=== PATIENT | male | born 1970 | race Caucasian/White ===

== ENCOUNTER → 2021-06-06 | Outpatient (CLI) | payer MEDICARE, MEDICAID ==
[2021-04-15 15:00] VITALS: BP 146/71
[~2021-06-06] MED LIST: AMLO-187 PO; AMOX1TAB11 PO; AMOX1TAB61 PO; ARIP5TAB13 PO; ATOR20TA58 PO; BUDE10.2 IH; CHOL5000 PO; DIAZ5TAB4 PO; FLUT1BLS3 IH; LEVE10007 PO; NABU750T11 PO; OXYC30TA64 PO; OXYC80TA16 PO; POTA-121 PO; PRED-220 PO; QUET50TA5 PO; SERT100T PO; TRAZ-123 PO; VANC125C3 PO; VENTOLIN HFA18 GM INH
== END ==
LOC: LAB 11:34
PROVIDERS: ATTEND Podiatrist
DX: Z01.812 Encounter for preprocedural laboratory examination (principal); Z20.822 Contact with and (suspected) exposure to COVID-19
CPT/HCPCS: U0003; U0005

== ENCOUNTER 2021-06-08 11:16 | Inpatient (IN) | payer MEDICARE, MEDICAID ==
[~2021-06-08] VITALS: Ht 170.2 cm; Wt 73.6 kg
[~2021-06-08 11:16] MED LIST changes: -BUDE10.2 IH; -DIAZ5TAB4 PO; -FLUT1BLS3 IH; +HYDROmorphone 2 MG/ML INJ. IVP PRN; +IV RINGERS,LACTATED 1000ML 1,000 ML IV SCH; +MORPHINE SULFATE 2 MG/ML INJ. IVP PRN; +PROCHLORPERAZINE 10 MG/2 ML VIAL. IVP PRN; -QUET50TA5 PO; -VENTOLIN HFA18 GM INH; +fentaNYL PF VIAL 100 MCG/2 ML VIAL IVP PRN
--- NOTE | 2021-06-08 12:08 | PDOC1 ---
History and Physical Date of Service: DOS: DATE: 06/08/21 TIME: 11:58 Chief Complaint: Chief Complain: foot surgery History of Present Illness: HPI: Patient is a 50yo WM presenting today for right foot surgery with Dr. Shaw. Previous right first metatarsal fracture. Hx COPD on 3l home o2, HTN, previous seizure d/o. Patient noted to be saturating 84% on his usual 3L O2 nasal cannula. He was denying any respiratory symptoms at this time. Took morning meds today as directed. Past Medical/Surgical History: PMH/PSH: COPD, HTN, Seizure d/o Allergies: Allergies: Coded Allergies: No Known Drug Allergies (Unverified , 06/08/21) Family History: Family History: none known Social History: Social History: Daily tobacco use. Denies alcohol drugs Current Medications: Current Medications Current Medications Fentanyl Citrate (Fentanyl 2ml Vial) 25 mcg PRN Q5MIN PRN IVP MILD PAIN 1-3; Start 06/08/21 at 06:00; Stop 06/09/21 at 05:59 Fentanyl Citrate (Fentanyl 2ml Vial) 50 mcg PRN Q5MIN PRN IVP MODERATE PAIN 4- 6; Start 06/08/21 at 06:00; Stop 06/09/21 at 05:59 Morphine Sulfate (Morphine Sulfate) 1 mg PRN Q10MIN PRN IVP SEVERE PAIN 7-10; Start 06/08/21 at 06:00; Stop 06/09/21 at 05:59 Ringer's Solution 1,000 ml @ 30 mls/hr Q24H IV ; Start 06/08/21 at 06:00; Stop 06/08/21 at 17:59 Hydromorphone HCl (Dilaudid) 0.5 mg PRN Q10MIN PRN IVP SEVERE PAIN 7-10, 2nd CHOICE; Start 06/08/21 at 06:00; Stop 06/09/21 at 05:59 Prochlorperazine Edisylate (Compazine) 5 mg PACU PRN PRN IVP NAUSEA, MRX1; Start 06/08/21 at 06:00; Stop 06/09/21 at 05:59 Cefazolin Sodium/ Dextrose 50 ml @ 100 mls/hr 1X PREOP PRN IV PRIOR TO PROCEDURE; Start 06/08/21 at 06:00; Stop 06/08/21 at 18:00 Active Scripts Active Prednisone (Prednisone) 10 Mg Tablet 10 Mg PO UD Take 4 tablets by mouth daily for 2 days, then take 3 tablets by mouth daily for 2 days, then take 2 tablets by mouth daily for 2 days, then take 1 tablets by mouth daily for 2 days, then stop. Augmentin 875-125 Tablet (Amoxicillin/Potassium Clav) 1 Each Tablet 1 Tab PO BID 7 Days Vitamin D3 (Vitamin D) 125 Mcg Capsule 5,000 Unit PO DAILY Amlodipine Besylate 10 Mg Tablet 10 Mg PO DAILY 30 Days Reported Levetiracetam 1,000 Mg Tablet 1,000 Mg PO BID Take twice a day for 6 months (breakfast/bedtime) Month 7 - take once a day at bedtime Month 8 - take every other night Month 9 - stop taking Klor-Con M20 (Potassium Chloride) 20 Meq Tab.er.prt 20 Meq PO DAILY Trazodone Hcl 100 Mg Tablet 100 Mg PO HS Oxycontin (Oxycodone HCl) 30 Mg Tab.er.12h 30 Mg PO PRN Q4HRS PRN Nabumetone 750 Mg Tablet 750 Mg PO PRN BID PRN Zoloft (Sertraline Hcl) 100 Mg Tablet 100 Mg PO DAILY Abilify (Aripiprazole) 5 Mg Tablet 5 Mg PO DAILY Oxycontin (Oxycodone HCl) 80 Mg Tab.er.12h 80 Mg PO BID Atorvastatin Calcium 20 Mg Tablet 20 Mg PO HS ROS: Review of Systems Review of System Unless noted in HPI a 14pt ROS was negative Physical Exam: Vital Signs: Vital Signs Date Time Temp Pulse Resp B/P (MAP) Pulse Ox O2 Delivery O2 Flow Rate FiO2 06/08/21 11:49 98.8 105 24 135/60 85 Nasal Cannula 3 98.8 Physcial Exam: GEN: No apparent distress. Alert and oriented HEENT: Normal cephalic, atraumatic, external auditory canals are patent EYES: Extraocular muscles are intact, pupil are equally round and reactive to light and accommodation MUSCULOSKELETAL: Well developed , well nourished, good range of motion ENDOCRINE: No thyromegaly was palpated LYMPHATICS: No cervical chain or axillary nodes were noted HEMATOPOIETIC: No bruising NECK: Supple, no JVD, no thyromegaly was noted LUNGS: Clear to auscultation in all lung tee without rhonchi or wheezing HEART: RRR, S!, S2 present. Peripheral pulses intact, no obvious murmurs noted ABDOMEN: Soft, nontender. Positive bowel sounds, no organomegaly, normal bowel sounds EXTREMITIES: Without clubbing, cyanosis, or edema. Pedal pulses intact. Negative Homans sign NEUROLOGIC: Normal speech and tone. A&O x 3, moves all extremities, no obvious focal deficits PSYCHIATRIC: Normal affect, normal mood. Stable SKIN: No ulcerations or rashes, good skin turgor, no jaundice VASCULAR: Good capillary refill, neurovascular bundle appears to be intact Assessment/Plan Assessment/Plan Patient here for right lower extremity surgery. Saturation noted to be low 80's when seen at bedside. Will try a duoneb to see if this helps patient's saturations. If no improvement check chest Xray. If saturations improve ok for surgery from hospitalist standpoint. Justifications for Admission Other Justification SILVIA CROWLEY MD Jun 08, 2021 12:08
[2021-06-08] MEDS ORDERED: IPRATRPIUM/ALBUTEROL 0.5/2.5MG 3 ML NEBU. NEB ONE (12:15)
[2021-06-08 12:18] LABS: CALCIUM 8.8 mg/dL (8.5-10.1); CREATININE 0.9 mg/dL (0.7-1.3); GFR 88.6; POTASSIUM 3.9 mmol/L (3.5-5.1)
--- NOTE | 2021-06-08 12:38 | RAD ---
EXAM: Chest, single view. HISTORY: Preoperative evaluation. COMPARISON: 04/11/2021 FINDINGS: A frontal view of the chest is obtained. There is left lower lobe atelectasis or interstiti al infiltrate. There is no pleural effusion or pneumothorax. The heart is normal in size. There is ce rvical spinal fusion instrumentation. IMPRESSION: Left lower lobe opacity, increased compared to the prior study and likely due to atelecta sis or infiltrate. Electronically signed by: Ashley Moreno MD (06/08/2021 12:35 PM) [id number]
[2021-06-08 12:46] LABS: BASE EXCESS ABG 11 mmol/L (-3-3); HCO3 ABG 42 mmol/L (21-28); SAT O2 ABG 85 % (92-99)
[2021-06-08 12:53] LABS: FIO2 ABG 3L NC; PCO2 ABG 84 mmHg (35-46); PO2 ABG 44 mmHg (75-108)
[2021-06-08] MEDS ORDERED: QUET50TA5 PO (13:40)
[2021-06-08] MEDS ORDERED: DIAZ5TAB4 PO (13:40)
[2021-06-08] MEDS ORDERED: BUDE10.2 IH (13:43)
[2021-06-08] MEDS ORDERED: VENTOLIN HFA18 GM INH (13:43)
[2021-06-08] MEDS ORDERED: FLUT1BLS3 IH (13:43)
[2021-06-08] MEDS ORDERED: ZOLPIDEM 5 MG TABLET. PO PRN (14:00)
[2021-06-08] MEDS ORDERED: cefTRIAXone IV Push 1 GM VIAL. IVP SCH (14:00)
[2021-06-08] MEDS ORDERED: ACETAMINOPHEN 325 MG TABLET. PO PRN (14:00)
[2021-06-08] MEDS ORDERED: DEXTROSE 50% 25 GM / 50ML DISP.SYRIN. IV PRN (14:00)
[2021-06-08] MEDS ORDERED: ONDANSETRON PF 4 MG/2 ML VIAL. IVP PRN (14:00)
[2021-06-08] MEDS ORDERED: diphenhydrAMINE 50 MG/ML VIAL IVP PRN (14:00)
[2021-06-08] MEDS ORDERED: diazePAM 5 MG TABLET PO ONE (14:00)
[2021-06-08] MEDS ORDERED: diphenhydrAMINE HCL 25 MG CAPSULE PO PRN (14:00)
[2021-06-08] MEDS ORDERED: PROCHLORPERAZINE 10 MG/2 ML VIAL. IV PRN (14:00)
[2021-06-08] MEDS: cefTRIAXone IV Push 1 GM VIAL. IVP SCH (14:11)
[2021-06-08] MEDS ORDERED: OXYC30TA64 PO (14:20)
[2021-06-08 15:30] VITALS: BP 115/66
[2021-06-08] MEDS: IPRATRPIUM/ALBUTEROL 0.5/2.5MG 3 ML NEBU. NEB SCH ×2 (15:32→20:00)
[2021-06-08] MEDS: ALBUTEROL SULFATE 2.5 MG/3 ML NEBU. NEB SCH ×2 (16:00→20:00)
[2021-06-08] MEDS: AZITHROMYCIN 500 MG in IV NORMAL SALINE 250ML 250 ML IV SCH (16:00)
[2021-06-08 19:00] VITALS: BP 130/74
[2021-06-08] MEDS: BUDESONIDE 0.5 MG/2 ML NEBU. NEB SCH (20:00)
[2021-06-08] MEDS: oxyCODONE ER 40 MG TAB.ER.12H PO SCH (20:26)
[2021-06-08] MEDS: ATORVASTATIN CALCIUM 20 MG TABLET PO SCH (20:26)
[2021-06-08] MEDS: diazePAM 5 MG TABLET PO SCH (20:26)
[2021-06-08] MEDS: traZODone 100 MG TABLET. PO SCH (20:27)
[2021-06-08] MEDS: QUEtiapine 25 MG TABLET. PO SCH (20:27)
[2021-06-08 20:38] LABS: BASE EXCESS ABG 6 mmol/L (-3-3); HCO3 ABG 35 mmol/L (21-28); PO2 ABG 54 mmHg (75-108); SAT O2 ABG 89 % (92-99)
[2021-06-08 20:49] LABS: PCO2 ABG 71 mmHg (35-46)
[2021-06-08 23:00] VITALS: BP 133/65
[2021-06-09 03:12] VITALS: BP 130/79
[2021-06-09] MEDS: LORazepam 0.5 MG TABLET PO PRN (03:21)
[2021-06-09] MEDS: ALBUTEROL SULFATE 2.5 MG/3 ML NEBU. NEB SCH ×6 (04:00→20:00)
[2021-06-09] MEDS: IPRATRPIUM/ALBUTEROL 0.5/2.5MG 3 ML NEBU. NEB SCH ×4 (06:36→20:14)
[2021-06-09] MEDS: BUDESONIDE 0.5 MG/2 ML NEBU. NEB SCH ×2 (06:41→20:14)
[2021-06-09 07:00] VITALS: BP 118/66
[2021-06-09] MEDS: diazePAM 5 MG TABLET PO SCH ×3 (08:01→20:42)
[2021-06-09] MEDS: oxyCODONE ER 40 MG TAB.ER.12H PO SCH ×2 (08:01→20:43)
[2021-06-09] MEDS: SERTRALINE 50 MG TABLET. PO SCH (08:01)
[2021-06-09] MEDS ORDERED: NON FORMULARY ITEM (Fluticasone/Umeclidin/Vilanter (Trelegy Ellipta 100-62.5-25) 1 EACH) IH SCH (09:00)
[2021-06-09 11:00] VITALS: BP 111/64
--- NOTE | 2021-06-09 11:59 | NUR ---
SW following. Discussed with RN, pt from home, on continuous bipap. Pt came for an outpatient surgery, however oxygen needs were too great to proceed with surgery. Last admission pt discharged to [facility] whilst he awaited the surgery. Pt being tested for COVID-19. SW will continue to follow.
[2021-06-09] MEDS ORDERED: NICOTINE 14MG PATCH. TD SCH (13:00)
--- NOTE | 2021-06-09 13:10 | PDOC ---
PULMONARY PROGRESS NOTES DATE: 06/09/21 TIME: 13:09 Vitals Vital Signs Date Time Temp Pulse Resp B/P (MAP) Pulse Ox O2 Delivery O2 Flow Rate FiO2 06/09/21 12:20 BiPAP/CPAP 06/09/21 11:37 99 06/09/21 11:00 98.5 78 20 111/64 (80) 98.5 06/08/21 23:00 10.0 General: Alert HEENT: Other Lungs: Clear Cardiovascular: S1, S2 Abdomen: Soft, Non-tender Extremities: No Edema Labs Laboratory Tests Test 06/08/21 11:50 06/08/21 12:45 06/08/21 20:35 Sodium Level 141 mmol/L (136-145) Potassium Level 3.9 mmol/L (3.5-5.1) Chloride Level 99 mmol/L (98-107) Carbon Dioxide Level 37 mmol/L (21-32) Anion Gap 5 (6-14) Blood Urea Nitrogen 9 mg/dL (8-26) Creatinine 0.9 mg/dL (0.7-1.3) Estimated GFR (Cockcroft-Gault) 88.6 Glucose Level 106 mg/dL (70-99) Calcium Level 8.8 mg/dL (8.5-10.1) O2 Saturation 85 % (92-99) 89 % (92-99) Arterial Blood pH 7.31 (7.35-7.45) 7.32 (7.35-7.45) Arterial Blood pCO2 at Patient Temp 84 mmHg (35-46) 71 mmHg (35-46) Arterial Blood pO2 at Patient Temp 44 mmHg (75-108) 54 mmHg (75-108) Arterial Blood HCO3 42 mmol/L (21-28) 35 mmol/L (21-28) Arterial Blood Base Excess 11 mmol/L (-3-3) 6 mmol/L (-3-3) FiO2 3l nc Laboratory Tests Test 06/08/21 20:35 O2 Saturation 89 % (92-99) Arterial Blood pH 7.32 (7.35-7.45) Arterial Blood pCO2 at Patient Temp 71 mmHg (35-46) Arterial Blood pO2 at Patient Temp 54 mmHg (75-108) Arterial Blood HCO3 35 mmol/L (21-28) Arterial Blood Base Excess 6 mmol/L (-3-3) Medications Active Scripts Medications Dose Route/Sig Max Daily Dose Days Date Category Oxycontin (Oxycodone HCl) 30 Mg Tab.er.12h 1-2 Tab PO Q4HRS MDD 3 Tablet(s) 30 06/08/21 Reported Trelegy Ellipta 100-62.5-25 (Fluticasone/Umeclidin/Vilanter) 1 Each Blst.w.dev 1 Each IH DAILY 06/08/21 Reported Ventolin Hfa Inhaler (Albuterol Sulfate) 18 Gm Hfa.aer.ad 2 Puff INH Q4HRS 06/08/21 Reported Symbicort 160-4.5 Mcg Inhaler (Budesonide/Formoterol Fumarate) 10.2 Gm Hfa.aer.ad 2 Puff IH BID 06/08/21 Reported Seroquel (Quetiapine Fumarate) 50 Mg Tablet 50 Mg PO HS 06/08/21 Reported Diazepam 5 Mg Tablet 5 Mg PO TID 06/08/21 Reported Trazodone Hcl 100 Mg Tablet 100 Mg PO HS 04/06/20 Reported Zoloft (Sertraline Hcl) 100 Mg Tablet 100 Mg PO DAILY 04/06/20 Reported Oxycontin (Oxycodone HCl) 80 Mg Tab.er.12h 80 Mg PO BID 04/06/20 Reported Atorvastatin Calcium 20 Mg Tablet 20 Mg PO HS 04/06/20 Reported Amlodipine Besylate 10 Mg Tablet 10 Mg PO DAILY 30 04/05/20 Rx Impression . FULL CONSULT DICTATED SEE ORDERS HOLD OFF ON SURGERY FOR NOW AVOIOD EXCESSIVE SEDATING RX CONTINUE PRN BIPAP THANKS MIRIAM WAGNER MD Jun 09, 2021 13:10
--- NOTE | 2021-06-09 13:21 | PDOC ---
[employer] PROGRESS NOTE Date of Service DOS: DATE: 06/09/21 TIME: 13:05 Chief Complaint Chief Complaint Acute hypoxic and hypercapnic respiratory failure requiring BiPAP support Second and third metatarsal fractures pending orthopedic surgery Continue empiric IV antibiotics Continue BiPAP support Pulmonology consult Treverx for DVT prophylaxis Cardiac diet CODE STATUS full Discussed with RN and SW Disposition inpatient management as above DPOA: Son History of Present Illness History of Present Illness 50yo WM presenting today for right foot surgery with Dr. Shaw. Previous right first metatarsal fracture. Hx COPD on 3l home o2, HTN, previous seizure d/o. Patient noted to be saturating 84% on his usual 3L O2 nasal cannula. He was denying any respiratory symptoms at this time. Took morning meds today as directed. Patient's oxygen saturations did not improve with DuoNeb treatment. Seen by anesthesiologist chest x-ray and ABG ordered. Chest x-ray showing left infiltrate. Will start antibiotics. ABG showed consistent with pretty significant respiratory acidosis. May benefit from BiPAP treatment. Will definitely need admission at this point. Surgery canceled. 06/09/2021 No acute events overnight. Patient seen examined bedside. Afebrile and vital signs stable. Saturating 99% on 100% BiPAP. BiPAP taken off and seen on nasal cannula and patient desaturated to the 80s on 5 L nasal cannula. Not dyspneic upon my exam. Patient wishes to remains to be full code. Pending Covid PCR. Patient's chart, labs, images were reviewed and discussed with RN Vitals/I&O Vitals/I&O: Vital Signs Date Time Temp Pulse Resp B/P (MAP) Pulse Ox O2 Delivery O2 Flow Rate FiO2 06/09/21 12:20 BiPAP/CPAP 06/09/21 11:37 99 06/09/21 11:00 98.5 78 20 111/64 (80) 98.5 06/08/21 23:00 10.0 I & O 06/08/21 06/08/21 06/09/21 15:00 23:00 07:00 Intake Total 0 ml 220 ml Balance 0 ml 220 ml Physical Exam General: Alert, Oriented X3, Cooperative Heart: Regular rate Lungs: Clear Abdomen: Normal bowel sounds Extremities: No clubbing Labs Labs: Laboratory Tests Test 06/08/21 20:35 O2 Saturation 89 % (92-99) Arterial Blood pH 7.32 (7.35-7.45) Arterial Blood pCO2 at Patient Temp 71 mmHg (35-46) Arterial Blood pO2 at Patient Temp 54 mmHg (75-108) Arterial Blood HCO3 35 mmol/L (21-28) Arterial Blood Base Excess 6 mmol/L (-3-3) Comment Review of Relevant I have reviewed the following items daria (where applicable) has been applied. Medications: Current Medications Medications (Trade) Dose Ordered Sig/Jakob Route PRN Reason Start Time Stop Time Status Last Admin Dose Admin Ceftriaxone Sodium (Rocephin) 1 gm Q24H IVP 06/08/21 15:00 06/08/21 14:11 Diazepam (Valium) 5 mg 1X ONCE PO 06/08/21 14:00 06/08/21 14:01 DC 06/08/21 14:02 Oxycodone HCl (Roxicodone) 30 mg 1X ONCE PO 06/08/21 14:00 06/08/21 14:01 DC 06/08/21 14:02 Albuterol/ Ipratropium (Duoneb) 3 ml RTQID NEB 06/08/21 16:00 06/09/21 11:35 Lorazepam (Ativan) 0.5 mg PRN Q6HRS PRN PO ANXIETY / AGITATION 06/08/21 14:00 06/09/21 03:21 Azithromycin 500 mg/Sodium Chloride 250 ml @ 250 mls/hr Q24H IV 06/08/21 16:00 06/08/21 16:00 Amlodipine Besylate (Norvasc) 10 mg DAILY PO 06/09/21 09:00 06/09/21 08:01 Atorvastatin Calcium (Lipitor) 20 mg QHS PO 06/08/21 21:00 06/08/21 20:26 Diazepam (Valium) 5 mg TID PO 06/08/21 21:00 06/09/21 08:01 Trazodone HCl (Desyrel) 100 mg QHS PO 06/08/21 21:00 06/08/21 20:27 Budesonide (Pulmicort) 0.5 mg RTBID NEB 06/08/21 20:00 06/09/21 06:41 Oxycodone HCl (Roxicodone) 30 mg PRN Q4HRS PRN PO BREAKTHRU PAIN 06/08/21 15:15 06/09/21 03:22 Oxycodone HCl (OxyCONTIN) 80 mg BID PO 06/08/21 21:00 06/09/21 08:01 Quetiapine Fumarate (SEROquel) 50 mg QHS PO 06/08/21 21:00 06/08/21 20:27 Sertraline HCl (Zoloft) 100 mg DAILY PO 06/09/21 09:00 06/09/21 08:01 Justifications for Admission Other Justification Hypercapnic respiratory failure SREEDHAR VASQUEZ MD Jun 09, 2021 13:21
[2021-06-09 13:28] LABS: BASO % 1 % (0-3); EOS # 0.3 x10^3/uL (0.0-0.7); EOS % 5 % (0-3); HEMATOCRIT 50.1 % (39.0-53.0); HEMOGLOBIN 15.5 g/dL (13.0-17.5); LYMPH # 2.2 x10^3/uL (1.0-4.8); LYMPH % 34 % (24-48); MEAN CORPUSCULAR HEMOGLOBIN 33 pg (25-35); MEAN CORPUSCULAR HGB CONC 31 g/dL (31-37); MEAN CORPUSCULAR VOLUME 108 fL (79-100); MONO # 0.5 x10^3/uL (0.0-1.1); MONO % 8 % (0-9); NEUT # 3.4 x10^3/uL (1.8-7.7); NEUT % 53 % (31-73); PLATELET COUNT 193 x10^3/uL (140-400); RED BLOOD COUNT 4.64 x10^6/uL (4.30-5.70); RED CELL DISTRIBUTION WIDTH 16.9 % (11.5-14.5); WHITE BLOOD COUNT 6.4 x10^3/uL (4.0-11.0)
[2021-06-09 13:34] LABS: CALCIUM 8.5 mg/dL (8.5-10.1); CREATININE 0.9 mg/dL (0.7-1.3); GFR 88.6; MAGNESIUM 2.2 mg/dL (1.8-2.4); POTASSIUM 4.1 mmol/L (3.5-5.1)
[2021-06-09] MEDS: NICOTINE 21MG PATCH. TD SCH (13:36)
[2021-06-09] MEDS: ENOXAPARIN 40 MG/0.4 ML SYRINGE. SQ SCH (13:36)
--- NOTE | 2021-06-09 13:38 | CONS ---
DATE OF CONSULTATION: 06/09/2021 ATTENDING PHYSICIAN: Dr. Too Ruggiero REASON FOR CONSULTATION: The patient is seen in pulmonary consultation at the request of Dr. Ruggiero for acute on chronic hypoxemic hypercapnic respiratory failure, pH of initially 7.31, PaCO2 of 84, pO2 of 44, bicarbonate 42. HISTORY OF PRESENT ILLNESS: The patient is a 50-year-old that presented with the possibility of undergoing surgical intervention. He has some hardware in his right lower extremity. He was found to have low O2 saturations. He was also more short of breath. He had an arterial blood gas revealing the above, he was placed on BiPAP. I was asked to see him in consultation. During my evaluation, I took off the BiPAP, I placed him on his normal at 3 liters of oxygen that he wears at home. The patient started to desaturate below 90%, I increased his FiO2. He has been wearing oxygen for over a year. He has underlying COPD, uses metered-dose inhalers and in the last 6 months, he has not had any acute exacerbation of chronic obstructive pulmonary disease, he continues to smoke. There is also history of anxiety, takes Valium 3 times daily. The patient states that he currently has a cough, mostly nonproductive. No fever, chills or night sweats. He is not vaccinated for COVID-19. He states he has not had COVID-19. PAST MEDICAL HISTORY: Remarkable for COPD, hypertension, tobacco dependence, seizure disorder. He has some hardware in his right foot from previous trauma. ALLERGIES: No known drug allergies. FAMILY HISTORY: Noncontributory. SOCIAL HISTORY: He denies alcohol intake. Smokes on a daily basis. CURRENT MEDICATIONS: List was reviewed. REVIEW OF SYSTEMS: CONSTITUTIONAL: No fever or chills. EYES: No change in visual acuity. HENT: No nasal congestion or sore throat. PULMONARY: As indicated above. CARDIOVASCULAR: No chest pain, no pressure. GASTROINTESTINAL: No nausea, vomiting, diarrhea. GENITOURINARY: No dysuria or frequency. MUSCULOSKELETAL: No localized muscle aches or joint pain. SKIN: No new skin rashes. NEUROLOGIC: No headaches, diplopia or blurred vision. PHYSICAL EXAMINATION: VITAL SIGNS: Vital signs are stable since admission, he has been afebrile. He is currently on BiPAP, 80% FiO2. HEENT: Eyes: The sclerae were nonicteric. NECK: Jugular venous distention was not elevated. No lymphadenopathy. CHEST: Full expansion. LUNGS: Diminished breath sounds throughout both lung tee. Slight crackles in the left base. CARDIOVASCULAR: Regular rate and rhythm with S1, S2, no S3. ABDOMEN: Soft. EXTREMITIES: No clubbing or cyanosis. No pitting edema. GENERAL: The patient was awake, alert, following commands. A detailed neuro exam was not performed. LABORATORY DATA: Reviewed. CBC is pending. Sodium was 141. Arterial blood gas as indicated above. Chest x-ray comparison to previous x-ray in 03/2021 revealed a left lower lobe opacity. IMPRESSION: 1. Acute on chronic hypoxemic hypercapnic respiratory failure. 2. Acute exacerbation of chronic obstructive pulmonary disease. 3. Abnormal x-ray, possible pneumonia, gram-negative, gram-positive. 4. Right lower extremity trauma, currently with some hardware requiring surgical intervention. 5. Tobacco dependent. 6. Abnormal x-ray. PLAN: 1. Recommend holding off on surgery for now until his pulmonary status is optimized. 2. Continue p.r.n. BiPAP. 3. Oxygen, wean off of BiPAP. 4. Empiric antibiotics. 5. Steroids. 6. Nicotine patch. 7. Deep venous thrombosis and gastrointestinal prophylaxis. 8. The patient is instructed on the importance of discontinuing tobacco use. 9. Continue home medications. I do appreciate the privilege in sharing in the patient's care. CLAY/MARK DR: Marychuy TID: [id number]
[2021-06-09 14:41] LABS: BASE EXCESS ABG 10 mmol/L (-3-3); HCO3 ABG 40 mmol/L (21-28); SAT O2 ABG 85 % (92-99)
[2021-06-09 14:45] LABS: PCO2 ABG 76 mmHg (35-46); PO2 ABG 48 mmHg (75-108)
[2021-06-09 14:46] LABS: FIO2 ABG 10L NC
[2021-06-09 15:00] VITALS: BP 104/59
[2021-06-09] MEDS: AZITHROMYCIN 500 MG in IV NORMAL SALINE 250ML 250 ML IV SCH (15:07)
[2021-06-09] MEDS: cefTRIAXone IV Push 1 GM VIAL. IVP SCH (15:07)
[2021-06-09] MEDS: methylPREDNISolone SOD SUCC PF 40 MG/ML VIAL. IV SCH ×2 (16:52→22:01)
[2021-06-09 19:00] VITALS: BP 121/65
--- NOTE | 2021-06-09 19:17 | PDOC2 ---
CONSULT Date of Consult Date of Consult DATE: 06/09/21 TIME: 19:07 Reason for Consult Reason for Consult: Right foot external fixator awaiting for surgical explantation Identification/Chief Complaint Chief Complaint Right foot external hardware for Lisfranc joint subluxation and a comminuted first metatarsal base fracture Source Source: Patient History of Present Illness Reason for Visit: Patient was scheduled for right external fixator explantation. At preop, patient was found with hypercapnic respiratory failure with oxygen saturation in 80s. Patient was then admitted as an inpatient for medical optimization and surgery was delayed due to the stress and risk of anesthesia complications. At bedside, patient was on BiPAP without any subjective chest pain, shortness of breath. Patient relates baseline 8 out of 10 sharp and throbbing pain to the midfoot. He admits to touchdown weightbearing well protected in the splint. Otherwise, he denies any calf pain, persistent numbness or tingling sensation to the right lower extremity. Nu-Thera denies any calf pain or any constitutional symptoms. Patient is anxious to undergo surgery and then return home. Past Medical History Pulmonary: COPD CENTRAL NERVOUS SYSTEM: Seizure Musculoskeletal: Other Renal/: Other Past Surgical History Past Surgical History: Cholecystectomy Family History Family History: Depression Social History ALCOHOL: heavy Drugs: None Lives: with Family Current Medications Current Medications Current Medications Fentanyl Citrate (Fentanyl 2ml Vial) 25 mcg PRN Q5MIN PRN IVP MILD PAIN 1-3; Start 06/08/21 at 06:00; Stop 06/08/21 at 14:02; Status DC Fentanyl Citrate (Fentanyl 2ml Vial) 50 mcg PRN Q5MIN PRN IVP MODERATE PAIN 4- 6; Start 06/08/21 at 06:00; Stop 06/08/21 at 14:02; Status DC Morphine Sulfate (Morphine Sulfate) 1 mg PRN Q10MIN PRN IVP SEVERE PAIN 7-10; Start 06/08/21 at 06:00; Stop 06/08/21 at 14:02; Status DC Ringer's Solution 1,000 ml @ 30 mls/hr Q24H IV Last administered on 06/08/21at 12:04; Start 06/08/21 at 06:00; Stop 06/08/21 at 14:02; Status DC Hydromorphone HCl (Dilaudid) 0.5 mg PRN Q10MIN PRN IVP SEVERE PAIN 7-10, 2nd CHOICE; Start 06/08/21 at 06:00; Stop 06/08/21 at 14:02; Status DC Prochlorperazine Edisylate (Compazine) 5 mg PACU PRN PRN IVP NAUSEA, MRX1; Start 06/08/21 at 06:00; Stop 06/08/21 at 14:02; Status DC Cefazolin Sodium/ Dextrose 50 ml @ 100 mls/hr 1X PREOP PRN IV PRIOR TO PROCEDURE; Start 06/08/21 at 06:00; Stop 06/08/21 at 14:01; Status DC Albuterol/ Ipratropium (Duoneb) 3 ml ONCE ONCE NEB Last administered on 06/08/21at 12:18; Start 06/08/21 at 12:15; Stop 06/08/21 at 12:16; Status DC Ceftriaxone Sodium (Rocephin) 1 gm Q24H IVP Last administered on 06/09/21at 15:07; Start 06/08/21 at 15:00 Diazepam (Valium) 5 mg 1X ONCE PO Last administered on 06/08/21at 14:02; Start 06/08/21 at 14:00; Stop 06/08/21 at 14:01; Status DC Oxycodone HCl (Roxicodone) 30 mg 1X ONCE PO Last administered on 06/08/21at 14:02; Start 06/08/21 at 14:00; Stop 06/08/21 at 14:01; Status DC Sennosides (Senna) 17.2 mg PRN BID PRN PO CONSTIPATION; Start 06/08/21 at 14:00 Docusate Sodium (Colace) 100 mg PRN DAILY PRN PO HARD STOOLS; Start 06/08/21 at 14:00 Ondansetron HCl (Zofran) 4 mg PRN Q6HRS PRN IVP NAUSEA/VOMITING, 1st CHOICE; Start 06/08/21 at 14:00 Albuterol/ Ipratropium (Duoneb) 3 ml RTQID NEB Last administered on 06/09/21at 15:29; Start 06/08/21 at 16:00 Dextrose (Dextrose 50%-Water Syringe) 12.5 gm PRN Q15MIN PRN IV SEE COMMENTS; Start 06/08/21 at 14:00 Acetaminophen (Tylenol) 650 mg PRN Q4HRS PRN PO TEMP OVER 100.4F OR MILD PAIN; Start 06/08/21 at 14:00 Lorazepam (Ativan) 0.5 mg PRN Q6HRS PRN PO ANXIETY / AGITATION Last administered on 06/09/21at 03:21; Start 06/08/21 at 14:00 Lorazepam (Ativan Inj) 0.25 mg PRN Q4HRS PRN IV ANXIETY / AGITATION; Start 06/08/21 at 14:00 Prochlorperazine Edisylate (Compazine) 10 mg PRN Q6HRS PRN IV NAUSEA/VOMITING, 2nd CHOICE; Start 06/08/21 at 14:00 Diphenhydramine HCl (Benadryl) 25 mg PRN Q6HRS PRN IVP ITCHING; Start 06/08/21 at 14:00 Diphenhydramine HCl (Benadryl) 25 mg PRN Q6HRS PRN PO ITCHING; Start 06/08/21 a t 14:00 Diphenhydramine HCl (Benadryl) 25 mg PRN QHS PRN PO INSOMNIA, 1st CHOICE; Start 06/08/21 at 14:00 Zolpidem Tartrate (Ambien) 2.5 mg PRN QHS PRN PO INSOMNIA, 2nd CHOICE; Start 06/08/21 at 14:00 Ceftriaxone Sodium (Rocephin) 1 gm Q24H IVP ; Start 06/08/21 at 14:00; Status UNV Azithromycin 500 mg/Sodium Chloride 250 ml @ 250 mls/hr Q24H IV Last administered on 06/09/21at 15:07; Start 06/08/21 at 16:00 Amlodipine Besylate (Norvasc) 10 mg DAILY PO Last administered on 06/09/21at 08:01; Start 06/09/21 at 09:00 Atorvastatin Calcium (Lipitor) 20 mg QHS PO Last administered on 06/08/21at 20:26; Start 06/08/21 at 21:00 Diazepam (Valium) 5 mg TID PO Last administered on 06/09/21at 13:37; Start 06/08/21 at 21:00 Trazodone HCl (Desyrel) 100 mg QHS PO Last administered on 06/08/21at 20:27; Start 06/08/21 at 21:00 Albuterol Sulfate (Ventolin Neb Soln) 2.5 mg Q4HRS NEB ; Start 06/08/21 at 16:00 Budesonide (Pulmicort) 0.5 mg RTBID NEB Last administered on 06/09/21at 06:41; Start 06/08/21 at 20:00 Non-Formulary Medication (Fluticasone/ Umeclidin/ Vilanter (Trelegy Ellipta 100-62.5-25)) 1 each DAILY IH ; Start 06/09/21 at 09:00; Status UNV Oxycodone HCl (Roxicodone) 30 mg PRN Q4HRS PRN PO BREAKTHRU PAIN Last administered on 06/09/21at 15:07; Start 06/08/21 at 15:15 Oxycodone HCl (OxyCONTIN) 80 mg BID PO Last administered on 06/09/21at 08:01; Start 06/08/21 at 21:00 Quetiapine Fumarate (SEROquel) 50 mg QHS PO Last administered on 06/08/21at 20:27; Start 06/08/21 at 21:00 Sertraline HCl (Zoloft) 100 mg DAILY PO Last administered on 06/09/21at 08:01; Start 06/09/21 at 09:00 Nicotine (Nicoderm Cq 14mg) 1 patch DAILY TD ; Start 06/09/21 at 13:00; Stop 06/09/21 at 13:02; Status DC Nicotine (Nicoderm Cq 21mg) 1 patch DAILY TD Last administered on 06/09/21at 13:36; Start 06/09/21 at 13:00 Enoxaparin Sodium (Lovenox 40mg Syringe) 40 mg Q24H SQ Last administered on 06/09/21at 13:36; Start 06/09/21 at 14:00 Methylprednisolone Sodium Succinate (SOLU-Medrol 40MG VIAL) 40 mg Q8HRS IV Last administered on 06/09/21at 16:52; Start 06/09/21 at 16:15 Active Scripts Active Amlodipine Besylate 10 Mg Tablet 10 Mg PO DAILY 30 Days Reported Oxycontin (Oxycodone HCl) 30 Mg Tab.er.12h 1-2 Tab PO Q4HRS MDD 3 Tablet(s) 30 Days Trelegy Ellipta 100-62.5-25 (Fluticasone/Umeclidin/Vilanter) 1 Each Blst.w.dev 1 Each IH DAILY Ventolin Hfa Inhaler (Albuterol Sulfate) 18 Gm Hfa.aer.ad 2 Puff INH Q4HRS Symbicort 160-4.5 Mcg Inhaler (Budesonide/Formoterol Fumarate) 10.2 Gm Hfa.aer.ad 2 Puff IH BID Seroquel (Quetiapine Fumarate) 50 Mg Tablet 50 Mg PO HS Diazepam 5 Mg Tablet 5 Mg PO TID Trazodone Hcl 100 Mg Tablet 100 Mg PO HS Zoloft (Sertraline Hcl) 100 Mg Tablet 100 Mg PO DAILY Oxycontin (Oxycodone HCl) 80 Mg Tab.er.12h 80 Mg PO BID Atorvastatin Calcium 20 Mg Tablet 20 Mg PO HS Allergies Allergies: Coded Allergies: No Known Drug Allergies (Unverified , 06/08/21) ROS Review of System CONSTITUTIONAL: No fever. No chills. No dizziness. No weakness. CARDIOVASCULAR: No chest pain. No palpitations. No lower extremity edema. RESPIRATORY: No shortness of breath, cough, pain with respiration. No hemoptysis. No dyspnea. GASTROINTESTINAL: Normal appetite. No nausea, vomiting, diarrhea. GENITOURINARY: No frequency, urgency, nocturia. No hematuria or dysuria. MUSCULOSKELETAL: refer to HPI INTEGUMENTARY: No abrasions, lymphangitis. NEUROLOGIC: No numbness or tingling of the extremities. No weakness. PSYCHIATRIC: No confusion. ENDOCRINE: No fatigue. No weakness. HEMATOLOGICAL: No bleeding. No petechiae. No bruising. ALLERGIES: No asthma. No urticaria Physical Exam Physical Exam General: Pleasant without apparent distress, AOx3 Dermatology: -The Nicole compression splint is in place with ankle held in near 90 degrees -There is wear and tear, dirt to the plantar aspect of the splint without any structural breakage Vascular: -Foot is warm to touch with CFT less than 3 seconds x 5 Neurology: -Light touch sensation at baseline unchanged to digits 1 through 5 MSK: -Able to move digits -Muscle strength and ankle range of motion was deferred -Calf is soft and nontender Vitals VITALS Vital Signs Date Time Temp Pulse Resp B/P (MAP) Pulse Ox O2 Delivery O2 Flow Rate FiO2 06/09/21 15:46 BiPAP/CPAP 06/09/21 15:37 95 06/09/21 15:31 10.0 06/09/21 15:00 98.0 75 20 104/59 (74) 98.0 Labs Labs Laboratory Tests Test 06/08/21 11:50 06/08/21 12:45 06/08/21 20:35 06/09/21 06:40 Sodium Level 141 mmol/L (136-145) 145 mmol/L (136-145) Potassium Level 3.9 mmol/L (3.5-5.1) 4.1 mmol/L (3.5-5.1) Chloride Level 99 mmol/L (98-107) 101 mmol/L (98-107) Carbon Dioxide Level 37 mmol/L (21-32) 38 mmol/L (21-32) Anion Gap 5 (6-14) 6 (6-14) Blood Urea Nitrogen 9 mg/dL (8-26) 14 mg/dL (8-26) Creatinine 0.9 mg/dL (0.7-1.3) 0.9 mg/dL (0.7-1.3) Estimated GFR (Cockcroft-Gault) 88.6 88.6 Glucose Level 106 mg/dL (70-99) 84 mg/dL (70-99) Calcium Level 8.8 mg/dL (8.5-10.1) 8.5 mg/dL (8.5-10.1) O2 Saturation 85 % (92-99) 89 % (92-99) Arterial Blood pH 7.31 (7.35-7.45) 7.32 (7.35-7.45) Arterial Blood pCO2 at Patient Temp 84 mmHg (35-46) 71 mmHg (35-46) Arterial Blood pO2 at Patient Temp 44 mmHg (75-108) 54 mmHg (75-108) Arterial Blood HCO3 42 mmol/L (21-28) 35 mmol/L (21-28) Arterial Blood Base Excess 11 mmol/L (-3-3) 6 mmol/L (-3-3) FiO2 3l nc White Blood Count 6.4 x10^3/uL (4.0-11.0) Red Blood Count 4.64 x10^6/uL (4.30-5.70) Hemoglobin 15.5 g/dL (13.0-17.5) Hematocrit 50.1 % (39.0-53.0) Mean Corpuscular Volume 108 fL (79-100) Mean Corpuscular Hemoglobin 33 pg (25-35) Mean Corpuscular Hemoglobin Concent 31 g/dL (31-37) Red Cell Distribution Width 16.9 % (11.5-14.5) Platelet Count 193 x10^3/uL (140-400) Neutrophils (%) (Auto) 53 % (31-73) Lymphocytes (%) (Auto) 34 % (24-48) Monocytes (%) (Auto) 8 % (0-9) Eosinophils (%) (Auto) 5 % (0-3) Basophils (%) (Auto) 1 % (0-3) Neutrophils # (Auto) 3.4 x10^3/uL (1.8-7.7) Lymphocytes # (Auto) 2.2 x10^3/uL (1.0-4.8) Monocytes # (Auto) 0.5 x10^3/uL (0.0-1.1) Eosinophils # (Auto) 0.3 x10^3/uL (0.0-0.7) Basophils # (Auto) 0.0 x10^3/uL (0.0-0.2) Magnesium Level 2.2 mg/dL (1.8-2.4) Test 06/09/21 08:20 06/09/21 14:30 SARS-CoV-2 RNA (ANDREA) Negative (Negative) O2 Saturation 85 % (92-99) Arterial Blood pH 7.34 (7.35-7.45) Arterial Blood pCO2 at Patient Temp 76 mmHg (35-46) Arterial Blood pO2 at Patient Temp 48 mmHg (75-108) Arterial Blood HCO3 40 mmol/L (21-28) Arterial Blood Base Excess 10 mmol/L (-3-3) FiO2 10l nc Laboratory Tests Test 06/08/21 20:35 06/09/21 06:40 06/09/21 08:20 06/09/21 14:30 O2 Saturation 89 % (92-99) 85 % (92-99) Arterial Blood pH 7.32 (7.35-7.45) 7.34 (7.35-7.45) Arterial Blood pCO2 at Patient Temp 71 mmHg (35-46) 76 mmHg (35-46) Arterial Blood pO2 at Patient Temp 54 mmHg (75-108) 48 mmHg (75-108) Arterial Blood HCO3 35 mmol/L (21-28) 40 mmol/L (21-28) Arterial Blood Base Excess 6 mmol/L (-3-3) 10 mmol/L (-3-3) White Blood Count 6.4 x10^3/uL (4.0-11.0) Red Blood Count 4.64 x10^6/uL (4.30-5.70) Hemoglobin 15.5 g/dL (13.0-17.5) Hematocrit 50.1 % (39.0-53.0) Mean Corpuscular Volume 108 fL (79-100) Mean Corpuscular Hemoglobin 33 pg (25-35) Mean Corpuscular Hemoglobin Concent 31 g/dL (31-37) Red Cell Distribution Width 16.9 % (11.5-14.5) Platelet Count 193 x10^3/uL (140-400) Neutrophils (%) (Auto) 53 % (31-73) Lymphocytes (%) (Auto) 34 % (24-48) Monocytes (%) (Auto) 8 % (0-9) Eosinophils (%) (Auto) 5 % (0-3) Basophils (%) (Auto) 1 % (0-3) Neutrophils # (Auto) 3.4 x10^3/uL (1.8-7.7) Lymphocytes # (Auto) 2.2 x10^3/uL (1.0-4.8) Monocytes # (Auto) 0.5 x10^3/uL (0.0-1.1) Eosinophils # (Auto) 0.3 x10^3/uL (0.0-0.7) Basophils # (Auto) 0.0 x10^3/uL (0.0-0.2) Sodium Level 145 mmol/L (136-145) Potassium Level 4.1 mmol/L (3.5-5.1) Chloride Level 101 mmol/L (98-107) Carbon Dioxide Level 38 mmol/L (21-32) Anion Gap 6 (6-14) Blood Urea Nitrogen 14 mg/dL (8-26) Creatinine 0.9 mg/dL (0.7-1.3) Estimated GFR (Cockcroft-Gault) 88.6 Glucose Level 84 mg/dL (70-99) Calcium Level 8.5 mg/dL (8.5-10.1) Magnesium Level 2.2 mg/dL (1.8-2.4) SARS-CoV-2 RNA (ANDREA) Negative (Negative) FiO2 10l nc Assessment/Plan Assessment/Plan S/p right Lisfranc joint external fixator in the presence of Lisfranc joint subluxation, comminuted fracture of the first metatarsal base Patient was admitted for hypercapnic respiratory failure before surgery -Keep the right lower extremity splint clean dry and intact without any dressing change -Strict nonweightbearing to the right lower extremity -PT eval and treat and help with sit, pivot and transfer while remain nonweightbearing to the right lower extremity -Continue with medical optimization, the surgery will be delayed for now and likely rescheduled to next week Dispo: I will continue to follow peripherally, but please inform me when patient is ready for surgery and I will coordinate with OR. After surgery, patient to remain nonweightbearing to minimal touchdown weightbearing in the E boot. Patient may return home versus SNF pending PT progression. EULALIO ALBERT DPM Jun 09, 2021 19:17
[2021-06-09] MEDS: ATORVASTATIN CALCIUM 20 MG TABLET PO SCH (20:42)
[2021-06-09] MEDS: QUEtiapine 25 MG TABLET. PO SCH (20:42)
[2021-06-09] MEDS: traZODone 100 MG TABLET. PO SCH (20:43)
[2021-06-09 23:05] VITALS: BP 114/56
[2021-06-09] MEDS: diphenhydrAMINE HCL 25 MG CAPSULE PO PRN (23:48)
[2021-06-10] MEDS: LORazepam 0.5 MG TABLET PO PRN (02:54)
[2021-06-10 03:30] VITALS: BP 111/59
[2021-06-10] MEDS: ALBUTEROL SULFATE 2.5 MG/3 ML NEBU. NEB SCH ×5 (04:00→16:00)
[2021-06-10] MEDS: methylPREDNISolone SOD SUCC PF 40 MG/ML VIAL. IV SCH ×3 (05:46→22:06)
[2021-06-10] MEDS: IPRATRPIUM/ALBUTEROL 0.5/2.5MG 3 ML NEBU. NEB SCH ×4 (06:46→20:35)
[2021-06-10] MEDS: BUDESONIDE 0.5 MG/2 ML NEBU. NEB SCH ×2 (06:47→20:35)
[2021-06-10 07:00] VITALS: BP 110/70
[2021-06-10] MEDS: NICOTINE 21MG PATCH. TD SCH (08:23)
[2021-06-10] MEDS: diazePAM 5 MG TABLET PO SCH ×3 (09:13→20:56)
[2021-06-10] MEDS: oxyCODONE ER 40 MG TAB.ER.12H PO SCH ×2 (09:13→20:57)
[2021-06-10] MEDS: SERTRALINE 50 MG TABLET. PO SCH (09:13)
--- NOTE | 2021-06-10 10:19 | PDOC ---
PULMONARY PROGRESS NOTES DATE: 06/10/21 TIME: 10:19 Subjective Patient currently on BiPAP 20/10 50% FiO2 Inquiring about surgery for foot today, discussed O2 requirements with him and surgery was on hold at this time Vitals Vital Signs Date Time Temp Pulse Resp B/P (MAP) Pulse Ox O2 Delivery O2 Flow Rate FiO2 06/10/21 09:14 68 110/70 06/10/21 09:13 BiPAP/CPAP 06/10/21 07:00 98.3 20 96 98.3 06/09/21 15:31 10.0 ROS: No Nausea, No Chest Pain General: Alert HEENT: Other Lungs: Clear Cardiovascular: S1, S2 Abdomen: Soft, Non-tender Extremities: No Edema Skin: Warm, No Rashes Labs Laboratory Tests Test 06/08/21 11:50 06/08/21 12:45 06/08/21 20:35 06/09/21 06:40 Sodium Level 141 mmol/L (136-145) 145 mmol/L (136-145) Potassium Level 3.9 mmol/L (3.5-5.1) 4.1 mmol/L (3.5-5.1) Chloride Level 99 mmol/L (98-107) 101 mmol/L (98-107) Carbon Dioxide Level 37 mmol/L (21-32) 38 mmol/L (21-32) Anion Gap 5 (6-14) 6 (6-14) Blood Urea Nitrogen 9 mg/dL (8-26) 14 mg/dL (8-26) Creatinine 0.9 mg/dL (0.7-1.3) 0.9 mg/dL (0.7-1.3) Estimated GFR (Cockcroft-Gault) 88.6 88.6 Glucose Level 106 mg/dL (70-99) 84 mg/dL (70-99) Calcium Level 8.8 mg/dL (8.5-10.1) 8.5 mg/dL (8.5-10.1) O2 Saturation 85 % (92-99) 89 % (92-99) Arterial Blood pH 7.31 (7.35-7.45) 7.32 (7.35-7.45) Arterial Blood pCO2 at Patient Temp 84 mmHg (35-46) 71 mmHg (35-46) Arterial Blood pO2 at Patient Temp 44 mmHg (75-108) 54 mmHg (75-108) Arterial Blood HCO3 42 mmol/L (21-28) 35 mmol/L (21-28) Arterial Blood Base Excess 11 mmol/L (-3-3) 6 mmol/L (-3-3) FiO2 3l nc White Blood Count 6.4 x10^3/uL (4.0-11.0) Red Blood Count 4.64 x10^6/uL (4.30-5.70) Hemoglobin 15.5 g/dL (13.0-17.5) Hematocrit 50.1 % (39.0-53.0) Mean Corpuscular Volume 108 fL (79-100) Mean Corpuscular Hemoglobin 33 pg (25-35) Mean Corpuscular Hemoglobin Concent 31 g/dL (31-37) Red Cell Distribution Width 16.9 % (11.5-14.5) Platelet Count 193 x10^3/uL (140-400) Neutrophils (%) (Auto) 53 % (31-73) Lymphocytes (%) (Auto) 34 % (24-48) Monocytes (%) (Auto) 8 % (0-9) Eosinophils (%) (Auto) 5 % (0-3) Basophils (%) (Auto) 1 % (0-3) Neutrophils # (Auto) 3.4 x10^3/uL (1.8-7.7) Lymphocytes # (Auto) 2.2 x10^3/uL (1.0-4.8) Monocytes # (Auto) 0.5 x10^3/uL (0.0-1.1) Eosinophils # (Auto) 0.3 x10^3/uL (0.0-0.7) Basophils # (Auto) 0.0 x10^3/uL (0.0-0.2) Magnesium Level 2.2 mg/dL (1.8-2.4) Test 06/09/21 08:20 06/09/21 14:30 SARS-CoV-2 RNA (ANDREA) Negative (Negative) O2 Saturation 85 % (92-99) Arterial Blood pH 7.34 (7.35-7.45) Arterial Blood pCO2 at Patient Temp 76 mmHg (35-46) Arterial Blood pO2 at Patient Temp 48 mmHg (75-108) Arterial Blood HCO3 40 mmol/L (21-28) Arterial Blood Base Excess 10 mmol/L (-3-3) FiO2 10l nc Laboratory Tests Test 06/09/21 14:30 O2 Saturation 85 % (92-99) Arterial Blood pH 7.34 (7.35-7.45) Arterial Blood pCO2 at Patient Temp 76 mmHg (35-46) Arterial Blood pO2 at Patient Temp 48 mmHg (75-108) Arterial Blood HCO3 40 mmol/L (21-28) Arterial Blood Base Excess 10 mmol/L (-3-3) FiO2 10l nc Medications Active Scripts Medications Dose Route/Sig Max Daily Dose Days Date Category Oxycontin (Oxycodone HCl) 30 Mg Tab.er.12h 1-2 Tab PO Q4HRS MDD 3 Tablet(s) 30 06/08/21 Reported Trelegy Ellipta 100-62.5-25 (Fluticasone/Umeclidin/Vilanter) 1 Each Blst.w.dev 1 Each IH DAILY 06/08/21 Reported Ventolin Hfa Inhaler (Albuterol Sulfate) 18 Gm Hfa.aer.ad 2 Puff INH Q4HRS 06/08/21 Reported Symbicort 160-4.5 Mcg Inhaler (Budesonide/Formoterol Fumarate) 10.2 Gm Hfa.aer.ad 2 Puff IH BID 06/08/21 Reported Seroquel (Quetiapine Fumarate) 50 Mg Tablet 50 Mg PO HS 06/08/21 Reported Diazepam 5 Mg Tablet 5 Mg PO TID 06/08/21 Reported Trazodone Hcl 100 Mg Tablet 100 Mg PO HS 04/06/20 Reported Zoloft (Sertraline Hcl) 100 Mg Tablet 100 Mg PO DAILY 04/06/20 Reported Oxycontin (Oxycodone HCl) 80 Mg Tab.er.12h 80 Mg PO BID 04/06/20 Reported Atorvastatin Calcium 20 Mg Tablet 20 Mg PO HS 04/06/20 Reported Amlodipine Besylate 10 Mg Tablet 10 Mg PO DAILY 30 04/05/20 Rx Impression . FULL CONSULT DICTATED SEE ORDERS HOLD OFF ON SURGERY FOR NOW AVOIOD EXCESSIVE SEDATING RX CONTINUE PRN BIPAP THANKS Plan . Continue current support Not ready for surgery, spoke with surgeon, scheduled for next week BiPAP 20/10 with 50% FiO2 Repeat ABG today MIRIAM WAGNER MD Jun 10, 2021 10:19
--- NOTE | 2021-06-10 10:24 | NUR ---
SW following. Discussed with RN, pt still on bipap, surgery pushed to next week. Per RN, pt wanting to go home. No SW needs at this time. COVID-19 negative. SW will continue to follow.
[2021-06-10 10:52] LABS: BASE EXCESS ABG 9 mmol/L (-3-3); HCO3 ABG 39 mmol/L (21-28); PO2 ABG 56 mmHg (75-108); SAT O2 ABG 89 % (92-99)
[2021-06-10 10:55] LABS: FIO2 ABG 10L NC; PCO2 ABG 74 mmHg (35-46)
[2021-06-10 11:00] VITALS: BP 105/57
--- NOTE | 2021-06-10 11:15 | PDOC ---
[employer] PROGRESS NOTE Date of Service DOS: DATE: 06/10/21 TIME: 11:11 Chief Complaint Chief Complaint Acute hypoxic and hypercapnic respiratory failure requiring BiPAP support Second and third metatarsal fractures pending orthopedic surgery Continue empiric IV antibiotics Continue BiPAP support Pulmonology consult Treverx for DVT prophylaxis Cardiac diet CODE STATUS full Discussed with RN and SW Disposition inpatient management as above DPOA: Son History of Present Illness History of Present Illness 50yo WM presenting today for right foot surgery with Dr. Shaw. Previous right first metatarsal fracture. Hx COPD on 3l home o2, HTN, previous seizure d/o. Patient noted to be saturating 84% on his usual 3L O2 nasal cannula. He was denying any respiratory symptoms at this time. Took morning meds today as directed. Patient's oxygen saturations did not improve with DuoNeb treatment. Seen by anesthesiologist chest x-ray and ABG ordered. Chest x-ray showing left infiltrate. Will start antibiotics. ABG showed consistent with pretty significant respiratory acidosis. May benefit from BiPAP treatment. Will definitely need admission at this point. Surgery canceled. 06/09/2021 No acute events overnight. Patient seen examined bedside. Afebrile and vital signs stable. Saturating 99% on 100% BiPAP. BiPAP taken off and seen on nasal cannula and patient desaturated to the 80s on 5 L nasal cannula. Not dyspneic upon my exam. Patient wishes to remains to be full code. Pending Covid PCR. Patient's chart, labs, images were reviewed and discussed with RN 06/10/2021 No acute events overnight. Patient seen examined bedside. Patient saturating 95% on 100% FiO2 of BiPAP. We will hold off on surgery at this time. Waiting for pulmonary to improve before considering elective surgery. Patient's chart, labs, images were reviewed and discussed with RN Vitals/I&O Vitals/I&O: Vital Signs Date Time Temp Pulse Resp B/P (MAP) Pulse Ox O2 Delivery O2 Flow Rate FiO2 06/10/21 09:14 68 110/70 06/10/21 09:13 BiPAP/CPAP 06/10/21 07:00 98.3 20 96 98.3 06/09/21 15:31 10.0 I & O 06/09/21 06/09/21 06/10/21 15:00 23:00 07:00 Intake Total 360 ml 240 ml Output Total 0 ml 200 ml Balance 360 ml 40 ml Physical Exam General: Alert, Oriented X3, Cooperative Heart: Regular rate Lungs: Clear Abdomen: Normal bowel sounds Extremities: No clubbing Labs Labs: Laboratory Tests Test 06/09/21 14:30 06/10/21 10:40 O2 Saturation 85 % (92-99) 89 % (92-99) Arterial Blood pH 7.34 (7.35-7.45) 7.34 (7.35-7.45) Arterial Blood pCO2 at Patient Temp 76 mmHg (35-46) 74 mmHg (35-46) Arterial Blood pO2 at Patient Temp 48 mmHg (75-108) 56 mmHg (75-108) Arterial Blood HCO3 40 mmol/L (21-28) 39 mmol/L (21-28) Arterial Blood Base Excess 10 mmol/L (-3-3) 9 mmol/L (-3-3) FiO2 10l nc 10l nc Comment Review of Relevant I have reviewed the following items daria (where applicable) has been applied. Medications: Current Medications Medications (Trade) Dose Ordered Sig/Jakob Route PRN Reason Start Time Stop Time Status Last Admin Dose Admin Nicotine (Nicoderm Cq 21mg) 1 patch DAILY TD 06/09/21 13:00 06/10/21 08:23 Enoxaparin Sodium (Lovenox 40mg Syringe) 40 mg Q24H SQ 06/09/21 14:00 06/09/21 13:36 Methylprednisolone Sodium Succinate (SOLU-Medrol 40MG VIAL) 40 mg Q8HRS IV 06/09/21 16:15 06/10/21 05:46 Justifications for Admission Other Justification Hypercapnic respiratory failure SREEDHAR VASQUEZ MD Jun 10, 2021 11:15
[2021-06-10] MEDS: cefTRIAXone IV Push 1 GM VIAL. IVP SCH (14:54)
[2021-06-10] MEDS: AZITHROMYCIN 500 MG in IV NORMAL SALINE 250ML 250 ML IV SCH (14:55)
[2021-06-10] MEDS: ENOXAPARIN 40 MG/0.4 ML SYRINGE. SQ SCH (14:55)
[2021-06-10 15:00] VITALS: BP 103/53
[2021-06-10 19:00] VITALS: BP 132/66
[2021-06-10] MEDS: DOCUSATE SODIUM 100 MG CAPSULE. PO PRN (19:16)
[2021-06-10] MEDS: QUEtiapine 25 MG TABLET. PO SCH (20:56)
[2021-06-10] MEDS: ATORVASTATIN CALCIUM 20 MG TABLET PO SCH (20:56)
[2021-06-10] MEDS: traZODone 100 MG TABLET. PO SCH (20:56)
[2021-06-10 23:04] VITALS: BP 147/61
[2021-06-11] MEDS ORDERED: ALBUTEROL SULFATE 2.5 MG/3 ML NEBU. NEB PRN
[2021-06-11] MEDS: diphenhydrAMINE HCL 25 MG CAPSULE PO PRN (00:38)
[2021-06-11] MEDS: BUDESONIDE 0.5 MG/2 ML NEBU. NEB SCH ×2 (01:00→07:15)
[2021-06-11] MEDS: IPRATRPIUM/ALBUTEROL 0.5/2.5MG 3 ML NEBU. NEB SCH ×4 (01:00→15:32)
[2021-06-11 03:17] VITALS: BP 131/60
[2021-06-11] MEDS: methylPREDNISolone SOD SUCC PF 40 MG/ML VIAL. IV SCH ×3 (06:26→21:39)
[2021-06-11 07:00] VITALS: BP 116/57
[2021-06-11 07:39] LABS: BASE EXCESS ABG 10 mmol/L (-3-3); HCO3 ABG 38 mmol/L (21-28); PO2 ABG 54 mmHg (75-108); SAT O2 ABG 88 % (92-99)
[2021-06-11 08:00] LABS: PCO2 ABG 69 mmHg (35-46)
[2021-06-11 08:01] LABS: FIO2 ABG 50
[2021-06-11] MEDS: SERTRALINE 50 MG TABLET. PO SCH (08:30)
[2021-06-11] MEDS: oxyCODONE ER 40 MG TAB.ER.12H PO SCH ×2 (08:30→21:38)
[2021-06-11] MEDS: NICOTINE 21MG PATCH. TD SCH (08:31)
[2021-06-11] MEDS: diazePAM 5 MG TABLET PO SCH ×3 (08:31→21:39)
--- NOTE | 2021-06-11 09:30 | PDOC ---
PULMONARY PROGRESS NOTES DATE: 06/11/21 TIME: 09:26 Subjective Patient feeling better, no worse Currently on 5L NC BiPAP overnight Vitals Vital Signs Date Time Temp Pulse Resp B/P (MAP) Pulse Ox O2 Delivery O2 Flow Rate FiO2 06/11/21 08:31 68 116/57 06/11/21 08:30 94 5.0 06/11/21 07:16 Nasal Cannula 06/11/21 07:00 97.3 17 97.3 ROS: No Nausea, No Chest Pain General: Alert HEENT: Other Lungs: Clear Cardiovascular: S1, S2 Abdomen: Soft, Non-tender Extremities: No Edema Skin: Warm, No Rashes Labs Laboratory Tests Test 06/09/21 14:30 06/10/21 10:40 06/11/21 07:35 O2 Saturation 85 % (92-99) 89 % (92-99) 88 % (92-99) Arterial Blood pH 7.34 (7.35-7.45) 7.34 (7.35-7.45) 7.36 (7.35-7.45) Arterial Blood pCO2 at Patient Temp 76 mmHg (35-46) 74 mmHg (35-46) 69 mmHg (35-46) Arterial Blood pO2 at Patient Temp 48 mmHg (75-108) 56 mmHg (75-108) 54 mmHg (75-108) Arterial Blood HCO3 40 mmol/L (21-28) 39 mmol/L (21-28) 38 mmol/L (21-28) Arterial Blood Base Excess 10 mmol/L (-3-3) 9 mmol/L (-3-3) 10 mmol/L (-3-3) FiO2 10l nc 10l nc 50 Laboratory Tests Test 06/10/21 10:40 06/11/21 07:35 O2 Saturation 89 % (92-99) 88 % (92-99) Arterial Blood pH 7.34 (7.35-7.45) 7.36 (7.35-7.45) Arterial Blood pCO2 at Patient Temp 74 mmHg (35-46) 69 mmHg (35-46) Arterial Blood pO2 at Patient Temp 56 mmHg (75-108) 54 mmHg (75-108) Arterial Blood HCO3 39 mmol/L (21-28) 38 mmol/L (21-28) Arterial Blood Base Excess 9 mmol/L (-3-3) 10 mmol/L (-3-3) FiO2 10l nc 50 Medications Active Scripts Medications Dose Route/Sig Max Daily Dose Days Date Category Oxycontin (Oxycodone HCl) 30 Mg Tab.er.12h 1-2 Tab PO Q4HRS MDD 3 Tablet(s) 30 06/08/21 Reported Trelegy Ellipta 100-62.5-25 (Fluticasone/Umeclidin/Vilanter) 1 Each Blst.w.dev 1 Each IH DAILY 06/08/21 Reported Ventolin Hfa Inhaler (Albuterol Sulfate) 18 Gm Hfa.aer.ad 2 Puff INH Q4HRS 06/08/21 Reported Symbicort 160-4.5 Mcg Inhaler (Budesonide/Formoterol Fumarate) 10.2 Gm Hfa.aer.ad 2 Puff IH BID 06/08/21 Reported Seroquel (Quetiapine Fumarate) 50 Mg Tablet 50 Mg PO HS 06/08/21 Reported Diazepam 5 Mg Tablet 5 Mg PO TID 06/08/21 Reported Trazodone Hcl 100 Mg Tablet 100 Mg PO HS 04/06/20 Reported Zoloft (Sertraline Hcl) 100 Mg Tablet 100 Mg PO DAILY 04/06/20 Reported Oxycontin (Oxycodone HCl) 80 Mg Tab.er.12h 80 Mg PO BID 04/06/20 Reported Atorvastatin Calcium 20 Mg Tablet 20 Mg PO HS 04/06/20 Reported Amlodipine Besylate 10 Mg Tablet 10 Mg PO DAILY 30 04/05/20 Rx Impression . FULL CONSULT DICTATED SEE ORDERS HOLD OFF ON SURGERY FOR NOW AVOIOD EXCESSIVE SEDATING RX CONTINUE PRN BIPAP THANKS Plan . Updated 06/11 Continue current support Foot SX scheduled for Sunday BiPAP PRN; 20/10 with 50% Fio@ Continue to titrate O2 down ABG reviewed Continue current support Not ready for surgery, spoke with surgeon, scheduled for next week BiPAP 20/10 with 50% FiO2 Repeat ABG today MIRIAM WAGNER MD Jun 11, 2021 09:30
[2021-06-11 11:00] VITALS: BP 133/65
--- NOTE | 2021-06-11 11:02 | PDOC ---
[employer] PROGRESS NOTE Date of Service DOS: DATE: 06/11/21 TIME: 11:01 Chief Complaint Chief Complaint Acute hypoxic and hypercapnic respiratory failure requiring BiPAP support Second and third metatarsal fractures pending orthopedic surgery Continue empiric IV antibiotics Continue BiPAP support Pulmonology consult Treverx for DVT prophylaxis Cardiac diet CODE STATUS full Discussed with RN and SW Disposition inpatient management as above DPOA: Son History of Present Illness History of Present Illness 50yo WM presenting today for right foot surgery with Dr. Shaw. Previous right first metatarsal fracture. Hx COPD on 3l home o2, HTN, previous seizure d/o. Patient noted to be saturating 84% on his usual 3L O2 nasal cannula. He was denying any respiratory symptoms at this time. Took morning meds today as directed. Patient's oxygen saturations did not improve with DuoNeb treatment. Seen by anesthesiologist chest x-ray and ABG ordered. Chest x-ray showing left infiltrate. Will start antibiotics. ABG showed consistent with pretty significant respiratory acidosis. May benefit from BiPAP treatment. Will definitely need admission at this point. Surgery canceled. 06/09/2021 No acute events overnight. Patient seen examined bedside. Afebrile and vital signs stable. Saturating 99% on 100% BiPAP. BiPAP taken off and seen on nasal cannula and patient desaturated to the 80s on 5 L nasal cannula. Not dyspneic upon my exam. Patient wishes to remains to be full code. Pending Covid PCR. Patient's chart, labs, images were reviewed and discussed with RN 06/10/2021 No acute events overnight. Patient seen examined bedside. Patient saturating 95% on 100% FiO2 of BiPAP. We will hold off on surgery at this time. Waiting for pulmonary to improve before considering elective surgery. Patient's chart, labs, images were reviewed and discussed with RN 06/11/2021 No acute events overnight. Patient seen examined bedside. AF and VSS. Saturating 94% on 5 L nasal cannula. May consider surgery Sunday with Dr. Shaw if able to maintain his current pulmonary status. Will defer this decision to pulmonary. Patient's chart, labs, images were reviewed and discussed with RN Vitals/I&O Vitals/I&O: Vital Signs Date Time Temp Pulse Resp B/P (MAP) Pulse Ox O2 Delivery O2 Flow Rate FiO2 1/29/22 08:31 68 116/57 06/11/21 08:30 94 5.0 06/11/21 08:14 Bi-pap 06/11/21 07:00 97.3 17 97.3 I & O 06/10/21 06/10/21 06/11/21 15:00 23:00 07:00 Intake Total 500 ml Output Total 300 ml Balance 500 ml -300 ml Physical Exam General: Alert, Oriented X3, Cooperative Heart: Regular rate Lungs: Clear Abdomen: Normal bowel sounds Extremities: No clubbing Labs Labs: Laboratory Tests Test 06/11/21 07:35 O2 Saturation 88 % (92-99) Arterial Blood pH 7.36 (7.35-7.45) Arterial Blood pCO2 at Patient Temp 69 mmHg (35-46) Arterial Blood pO2 at Patient Temp 54 mmHg (75-108) Arterial Blood HCO3 38 mmol/L (21-28) Arterial Blood Base Excess 10 mmol/L (-3-3) FiO2 50 Comment Review of Relevant I have reviewed the following items daria (where applicable) has been applied. Justifications for Admission Other Justification Hypercapnic respiratory failure SREEDHAR VASQUEZ MD Jun 11, 2021 11:02
[2021-06-11] MEDS: ENOXAPARIN 40 MG/0.4 ML SYRINGE. SQ SCH (14:00)
[2021-06-11 15:00] VITALS: BP 129/62
[2021-06-11] MEDS: cefTRIAXone IV Push 1 GM VIAL. IVP SCH (15:06)
[2021-06-11] MEDS: LORazepam 0.5 MG TABLET PO PRN (16:34)
[2021-06-11] MEDS: AZITHROMYCIN 250 MG TABLET. PO SCH (16:34)
[2021-06-11 19:00] VITALS: BP 124/58
[2021-06-11] MEDS: traZODone 100 MG TABLET. PO SCH (21:38)
[2021-06-11] MEDS: LACTOBACILLUS RHAMNOSUS GG 1 CAPSULE. PO SCH (21:39)
[2021-06-11] MEDS: ATORVASTATIN CALCIUM 20 MG TABLET PO SCH (21:39)
[2021-06-11] MEDS: QUEtiapine 25 MG TABLET. PO SCH (21:39)
[2021-06-11 23:00] VITALS: BP 112/58
[2021-06-12] MEDS: LORazepam 0.5 MG TABLET PO PRN (02:09)
[2021-06-12 03:00] VITALS: BP 103/51
[2021-06-12] MEDS: methylPREDNISolone SOD SUCC PF 40 MG/ML VIAL. IV SCH ×3 (05:48→20:55)
[2021-06-12] MEDS: IPRATRPIUM/ALBUTEROL 0.5/2.5MG 3 ML NEBU. NEB SCH ×4 (06:18→20:05)
[2021-06-12] MEDS: BUDESONIDE 0.5 MG/2 ML NEBU. NEB SCH ×2 (06:18→20:05)
[2021-06-12 07:00] VITALS: BP 100/57
[2021-06-12] MEDS: SENNOSIDES 8.6 MG TABLET PO PRN (09:46)
[2021-06-12] MEDS: oxyCODONE ER 40 MG TAB.ER.12H PO SCH ×2 (09:47→20:57)
[2021-06-12] MEDS: LACTOBACILLUS RHAMNOSUS GG 1 CAPSULE. PO SCH ×2 (09:48→20:56)
[2021-06-12] MEDS: SERTRALINE 50 MG TABLET. PO SCH (09:48)
[2021-06-12] MEDS: DOCUSATE SODIUM 100 MG CAPSULE. PO PRN (09:48)
[2021-06-12] MEDS: diazePAM 5 MG TABLET PO SCH ×3 (09:48→20:56)
[2021-06-12] MEDS: NICOTINE 21MG PATCH. TD SCH (09:49)
--- NOTE | 2021-06-12 10:14 | PDOC ---
PULMONARY PROGRESS NOTES DATE: 06/12/21 TIME: 10:10 Subjective Patient feeling better, no worse Currently on 3 L NC BiPAP overnight 02/03 22 50% Looking forward to foot surgery and going home. Vitals Vital Signs Date Time Temp Pulse Resp B/P (MAP) Pulse Ox O2 Delivery O2 Flow Rate FiO2 06/12/21 09:49 77 100/57 06/12/21 09:47 BiPAP/CPAP 06/12/21 07:00 98.0 24 85 98.0 06/12/21 03:36 5.0 ROS: No Nausea, No Chest Pain General: Alert HEENT: Other Lungs: Clear Cardiovascular: S1, S2 Abdomen: Soft, Non-tender Extremities: No Edema Skin: Warm, No Rashes Labs Laboratory Tests Test 06/10/21 10:40 06/11/21 07:35 O2 Saturation 89 % (92-99) 88 % (92-99) Arterial Blood pH 7.34 (7.35-7.45) 7.36 (7.35-7.45) Arterial Blood pCO2 at Patient Temp 74 mmHg (35-46) 69 mmHg (35-46) Arterial Blood pO2 at Patient Temp 56 mmHg (75-108) 54 mmHg (75-108) Arterial Blood HCO3 39 mmol/L (21-28) 38 mmol/L (21-28) Arterial Blood Base Excess 9 mmol/L (-3-3) 10 mmol/L (-3-3) FiO2 10l nc 50 Medications Active Scripts Medications Dose Route/Sig Max Daily Dose Days Date Category Oxycontin (Oxycodone HCl) 30 Mg Tab.er.12h 1-2 Tab PO Q4HRS MDD 3 Tablet(s) 30 06/08/21 Reported Trelegy Ellipta 100-62.5-25 (Fluticasone/Umeclidin/Vilanter) 1 Each Blst.w.dev 1 Each IH DAILY 06/08/21 Reported Ventolin Hfa Inhaler (Albuterol Sulfate) 18 Gm Hfa.aer.ad 2 Puff INH Q4HRS 06/08/21 Reported Symbicort 160-4.5 Mcg Inhaler (Budesonide/Formoterol Fumarate) 10.2 Gm Hfa.aer.ad 2 Puff IH BID 06/08/21 Reported Seroquel (Quetiapine Fumarate) 50 Mg Tablet 50 Mg PO HS 06/08/21 Reported Diazepam 5 Mg Tablet 5 Mg PO TID 06/08/21 Reported Trazodone Hcl 100 Mg Tablet 100 Mg PO HS 04/06/20 Reported Zoloft (Sertraline Hcl) 100 Mg Tablet 100 Mg PO DAILY 04/06/20 Reported Oxycontin (Oxycodone HCl) 80 Mg Tab.er.12h 80 Mg PO BID 04/06/20 Reported Atorvastatin Calcium 20 Mg Tablet 20 Mg PO HS 04/06/20 Reported Amlodipine Besylate 10 Mg Tablet 10 Mg PO DAILY 30 04/05/20 Rx Impression . FULL CONSULT DICTATED SEE ORDERS HOLD OFF ON SURGERY FOR NOW AVOIOD EXCESSIVE SEDATING RX CONTINUE PRN BIPAP THANKS Plan . Updated 06/12 Continue current support Encourage compliance with BiPAP and O2 via NC Encourage pulmonary hygiene Discussed with RN Updated 06/11 Continue current support Foot SX scheduled for Sunday BiPAP PRN; 20/10 with 50% Fio@ Continue to titrate O2 down ABG reviewed Continue current support Not ready for surgery, spoke with surgeon, scheduled for next week BiPAP 20/10 with 50% FiO2 Repeat ABG today MIRIAM WAGNER MD Jun 12, 2021 10:14
[2021-06-12 11:00] VITALS: BP 140/77
--- NOTE | 2021-06-12 12:22 | PDOC ---
[employer] PROGRESS NOTE Date of Service DOS: DATE: 06/12/21 TIME: 12:20 Chief Complaint Chief Complaint Acute hypoxic and hypercapnic respiratory failure requiring BiPAP support Second and third metatarsal fractures pending orthopedic surgery Continue empiric IV antibiotics Continue BiPAP support Pulmonology consult Treverx for DVT prophylaxis Cardiac diet CODE STATUS full Discussed with RN and SW Disposition inpatient management as above DPOA: Son History of Present Illness History of Present Illness 50yo WM presenting today for right foot surgery with Dr. Shaw. Previous right first metatarsal fracture. Hx COPD on 3l home o2, HTN, previous seizure d/o. Patient noted to be saturating 84% on his usual 3L O2 nasal cannula. He was denying any respiratory symptoms at this time. Took morning meds today as directed. Patient's oxygen saturations did not improve with DuoNeb treatment. Seen by anesthesiologist chest x-ray and ABG ordered. Chest x-ray showing left infiltrate. Will start antibiotics. ABG showed consistent with pretty significant respiratory acidosis. May benefit from BiPAP treatment. Will definitely need admission at this point. Surgery canceled. 06/09/2021 No acute events overnight. Patient seen examined bedside. Afebrile and vital signs stable. Saturating 99% on 100% BiPAP. BiPAP taken off and seen on nasal cannula and patient desaturated to the 80s on 5 L nasal cannula. Not dyspneic upon my exam. Patient wishes to remains to be full code. Pending Covid PCR. Patient's chart, labs, images were reviewed and discussed with RN 06/10/2021 No acute events overnight. Patient seen examined bedside. Patient saturating 95% on 100% FiO2 of BiPAP. We will hold off on surgery at this time. Waiting for pulmonary to improve before considering elective surgery. Patient's chart, labs, images were reviewed and discussed with RN 06/11/2021 No acute events overnight. Patient seen examined bedside. AF and VSS. Saturating 94% on 5 L nasal cannula. May consider surgery Sunday with Dr. Shaw if able to maintain his current pulmonary status. Will defer this decision to pulmonary. Patient's chart, labs, images were reviewed and discussed with RN 06/12/2021 No acute events overnight. Patient seen examined bedside. Still requiring BiPAP at night. Patient able to keep on mask for couple hours per day. Redirected to keep PO CO2 yesterday was 69. Not ready for surgery at this time. Follow with pulmonology Recs until ready for surgery later on this week possibly. Patient's chart, labs, images were reviewed and discussed with RN Vitals/I&O Vitals/I&O: Vital Signs Date Time Temp Pulse Resp B/P (MAP) Pulse Ox O2 Delivery O2 Flow Rate FiO2 06/12/21 11:38 95 BiPAP/CPAP 06/12/21 11:00 97.8 68 20 140/77 (98) 97.8 06/12/21 03:36 5.0 I & O 06/11/21 06/11/21 06/12/21 15:00 23:00 07:00 Intake Total 120 ml Balance 120 ml Physical Exam General: Alert, Oriented X3, Cooperative Heart: Regular rate Lungs: Clear Abdomen: Normal bowel sounds Extremities: No clubbing Comment Review of Relevant I have reviewed the following items daria (where applicable) has been applied. Medications: Current Medications Medications (Trade) Dose Ordered Sig/Jakob Route PRN Reason Start Time Stop Time Status Last Admin Dose Admin Azithromycin (Zithromax) 500 mg Q24H PO 06/11/21 16:00 06/11/21 16:34 Lactobacillus Rhamnosus (Culturelle) 1 cap BID PO 06/11/21 21:00 06/12/21 09:48 Justifications for Admission Other Justification Hypercapnic respiratory failure SREEDHAR VASQUEZ MD Jun 12, 2021 12:21
[2021-06-12] MEDS: AZITHROMYCIN 250 MG TABLET. PO SCH (13:57)
[2021-06-12] MEDS: ENOXAPARIN 40 MG/0.4 ML SYRINGE. SQ SCH (13:57)
[2021-06-12] MEDS: cefTRIAXone IV Push 1 GM VIAL. IVP SCH (13:58)
[2021-06-12 14:55] VITALS: BP 122/63
[2021-06-12 19:00] VITALS: BP 121/60
[2021-06-12] MEDS: traZODone 100 MG TABLET. PO SCH (20:56)
[2021-06-12] MEDS: QUEtiapine 25 MG TABLET. PO SCH (20:57)
[2021-06-12] MEDS: ATORVASTATIN CALCIUM 20 MG TABLET PO SCH (20:57)
[2021-06-12 23:00] VITALS: BP 134/68
[2021-06-13] MEDS: LORazepam 0.5 MG TABLET PO PRN (02:48)
[2021-06-13 03:00] VITALS: BP 124/79
[2021-06-13] MEDS: methylPREDNISolone SOD SUCC PF 40 MG/ML VIAL. IV SCH ×3 (05:38→22:21)
[2021-06-13] MEDS: BUDESONIDE 0.5 MG/2 ML NEBU. NEB SCH ×2 (06:24→20:10)
[2021-06-13] MEDS: IPRATRPIUM/ALBUTEROL 0.5/2.5MG 3 ML NEBU. NEB SCH ×4 (06:24→20:09)
[2021-06-13 07:11] VITALS: BP 135/65
--- NOTE | 2021-06-13 08:57 | PDOC ---
PULMONARY PROGRESS NOTES DATE: 06/13/21 TIME: 08:57 Subjective Patient feeling better this morning, inquiring about surgery tomorrow On exam patient is on room air at 93-94%, desaturation with talking to upper 80% Patient educated on the need for O2 via NC, currently at 6L from overnight. Continues to use BiPAP overnight 20 50% Vitals Vital Signs Date Time Temp Pulse Resp B/P (MAP) Pulse Ox O2 Delivery O2 Flow Rate FiO2 06/13/21 07:11 97.4 58 20 135/65 (88) 94 97.4 06/13/21 06:26 BiPAP/CPAP 06/13/21 04:48 3.0 ROS: No Nausea, No Chest Pain General: Alert HEENT: Other Lungs: Clear Cardiovascular: S1, S2 Abdomen: Soft, Non-tender Extremities: No Edema Skin: Warm, No Rashes Medications Active Scripts Medications Dose Route/Sig Max Daily Dose Days Date Category Oxycontin (Oxycodone HCl) 30 Mg Tab.er.12h 1-2 Tab PO Q4HRS MDD 3 Tablet(s) 30 06/08/21 Reported Trelegy Ellipta 100-62.5-25 (Fluticasone/Umeclidin/Vilanter) 1 Each Blst.w.dev 1 Each IH DAILY 06/08/21 Reported Ventolin Hfa Inhaler (Albuterol Sulfate) 18 Gm Hfa.aer.ad 2 Puff INH Q4HRS 06/08/21 Reported Symbicort 160-4.5 Mcg Inhaler (Budesonide/Formoterol Fumarate) 10.2 Gm Hfa.aer.ad 2 Puff IH BID 06/08/21 Reported Seroquel (Quetiapine Fumarate) 50 Mg Tablet 50 Mg PO HS 06/08/21 Reported Diazepam 5 Mg Tablet 5 Mg PO TID 06/08/21 Reported Trazodone Hcl 100 Mg Tablet 100 Mg PO HS 04/06/20 Reported Zoloft (Sertraline Hcl) 100 Mg Tablet 100 Mg PO DAILY 04/06/20 Reported Oxycontin (Oxycodone HCl) 80 Mg Tab.er.12h 80 Mg PO BID 04/06/20 Reported Atorvastatin Calcium 20 Mg Tablet 20 Mg PO HS 04/06/20 Reported Amlodipine Besylate 10 Mg Tablet 10 Mg PO DAILY 30 11/23/20 Rx Impression . FULL CONSULT DICTATED SEE ORDERS HOLD OFF ON SURGERY FOR NOW AVOIOD EXCESSIVE SEDATING RX CONTINUE PRN BIPAP THANKS Plan . Updated 06/13 Continue to encourage compliance with NC and BiPAP Provide and encourage Incentive Spirometer Discussed with RN Patient is currently scheduled for foot surgery tomorrow, discussed with RN and Patient Patient's respiratory status is compensated for no surgical intervention, discussed with surgeon, will be done with local, and IV sedation MIRIAM WAGNER MD Jun 13, 2021 08:57
[2021-06-13] MEDS: diazePAM 5 MG TABLET PO SCH ×3 (09:32→20:09)
[2021-06-13] MEDS: LACTOBACILLUS RHAMNOSUS GG 1 CAPSULE. PO SCH ×2 (09:32→20:09)
[2021-06-13] MEDS: oxyCODONE ER 40 MG TAB.ER.12H PO SCH ×2 (09:33→20:10)
[2021-06-13] MEDS: SENNOSIDES 8.6 MG TABLET PO PRN (09:33)
[2021-06-13] MEDS: SERTRALINE 50 MG TABLET. PO SCH (09:34)
[2021-06-13] MEDS: DOCUSATE SODIUM 100 MG CAPSULE. PO PRN (09:34)
[2021-06-13] MEDS: NICOTINE 21MG PATCH. TD SCH (09:35)
[2021-06-13 10:59] VITALS: BP 149/70
--- NOTE | 2021-06-13 11:32 | NUR ---
SW following. Discussed with RN, improved oxygen status. Plans for surgery tomorrow (06/14/21). SW will continue to follow.
--- NOTE | 2021-06-13 11:38 | PDOC ---
[employer] PROGRESS NOTE Date of Service DOS: DATE: 06/13/21 TIME: 11:37 Chief Complaint Chief Complaint Acute hypoxic and hypercapnic respiratory failure requiring BiPAP support Second and third metatarsal fractures pending orthopedic surgery Continue empiric IV antibiotics Continue BiPAP support [facility] Cardiac diet CODE STATUS full Discussed with RN and SW Disposition inpatient management as above DPOA: Son History of Present Illness History of Present Illness 50yo M presenting today for right foot surgery with Dr. Shwa. Previous right first metatarsal fracture. Hx COPD on 3l home o2, HTN, previous seizure d/o. Patient noted to be saturating 84% on his usual 3L O2 nasal cannula. He was denying any respiratory symptoms at this time. Took morning meds today as directed. Patient's oxygen saturations did not improve with DuoNeb treatment. Seen by anesthesiologist chest x-ray and ABG ordered. Chest x-ray showing left infiltrate. Will start antibiotics. ABG showed consistent with pretty significant respiratory acidosis. May benefit from BiPAP treatment. Will definitely need admission at this point. Surgery canceled. 06/09/2021 No acute events overnight. Patient seen examined bedside. Afebrile and vital signs stable. Saturating 99% on 100% BiPAP. BiPAP taken off and seen on nasal cannula and patient desaturated to the 80s on 5 L nasal cannula. Not dyspneic upon my exam. Patient wishes to remains to be full code. Pending Covid PCR. Patient's chart, labs, images were reviewed and discussed with RN 06/10/2021 No acute events overnight. Patient seen examined bedside. Patient saturating 95% on 100% FiO2 of BiPAP. We will hold off on surgery at this time. Waiting for pulmonary to improve before considering elective surgery. Patient's chart, labs, images were reviewed and discussed with RN 06/11/2021 No acute events overnight. Patient seen examined bedside. AF and VSS. Saturating 94% on 5 L nasal cannula. May consider surgery Sunday with Dr. Shaw if able to maintain his current pulmonary status. Will defer this decision to pulmonary. Patient's chart, labs, images were reviewed and discussed with RN 06/12/2021 No acute events overnight. Patient seen examined bedside. Still requiring BiPAP at night. Patient able to keep on mask for couple hours per day. Redirected to keep PO CO2 yesterday was 69. Not ready for surgery at this time. Follow with pulmonology Recs until ready for surgery later on this week possibly. Patient's chart, labs, images were reviewed and discussed with RN 06/13/2021 No acute events overnight. Patient seen examined bedside. Patient saturating well on room air and tolerating BiPAP at night. Will discuss with pulmonology for possibly proceeding with orthopedic surgery this week or tomorrow. Christi ent's chart, labs, images were reviewed and discussed with RN Vitals/I&O Vitals/I&O: Vital Signs Date Time Temp Pulse Resp B/P (MAP) Pulse Ox O2 Delivery O2 Flow Rate FiO2 06/13/21 10:59 97.9 55 18 149/70 (96) 94 BiPAP/CPAP 97.9 06/13/21 04:48 3.0 I & O 06/12/21 06/12/21 06/13/21 15:00 23:00 07:00 Intake Total 240 ml Output Total 3000 ml Balance -3000 ml 240 ml Physical Exam General: Alert, Oriented X3, Cooperative Heart: Regular rate Lungs: Clear Abdomen: Normal bowel sounds Extremities: No clubbing Comment Review of Relevant I have reviewed the following items daria (where applicable) has been applied. Justifications for Admission Other Justification Hypercapnic respiratory failure SREEDHAR VASQUEZ MD Jun 13, 2021 11:38
--- NOTE | 2021-06-13 13:39 | PDOC ---
PROGRESS NOTES Date of Service DATE: 06/13/21 TIME: 13:35 Subjective Subjective Patient was seen resting comfortably in bed. Patient relates baseline 8 out of 10 achy throbbing pain to the midfoot that has been unchanged. Patient has been saturating well on room air and tolerating BiPAP at night. Objective Objective Vital Signs Date Time Temp Pulse Resp B/P (MAP) Pulse Ox O2 Delivery O2 Flow Rate FiO2 06/13/21 12:00 90 Nasal Cannula 2.0 06/13/21 10:59 97.9 55 18 149/70 (96) 97.9 l Intake and Output 06/13/21 07:00 Intake Total 240 ml Output Total 3000 ml Balance -2760 ml Intake Oral 240 ml Output Urine Total 3000 ml Physical Exam Physical Exam General: Pleasant without apparent distress, AOx3 Dermatology: -The Nicole compression splint is in place with ankle held in near 90 degrees -There is wear and tear, dirt to the plantar aspect of the splint without any structural breakage Vascular: -Foot is warm to touch with CFT less than 3 seconds x 5 Neurology: -Light touch sensation at baseline unchanged to digits 1 through 5 MSK: -Able to move digits -Muscle strength and ankle range of motion was deferred -Calf is soft and nontender Plan Plan of Care S/p right Lisfranc joint external fixator in the presence of Lisfranc joint subluxation, comminuted fracture of the first metatarsal base Patient was admitted for hypercapnic respiratory failure before surgery -Keep the right lower extremity splint clean dry and intact without any dressing change -Strict nonweightbearing to the right lower extremity -PT eval and treat and help with sit, pivot and transfer while remain nonweightbearing to the right lower extremity -N.p.o. after midnight in preparation for surgery on June 14, start time around 11:45 AM -Curbside discussion with whom cleared patient for a regional lower extremity block and light sedation for the surgery. Dispo: Plan for surgery hardware removal on 06/14. Afterwards, patient can partial weightbearing with any gait aid while protected in an E boot. From foot and ankle perspective, patient is safe to be discharged home after surgery within 24 hours after PT eval. Comment Review of Relevant I have reviewed the following items daria (where applicable) has been applied. Medications Current Medications Fentanyl Citrate (Fentanyl 2ml Vial) 25 mcg PRN Q5MIN PRN IVP MILD PAIN 1-3; Start 06/08/21 at 06:00; Stop 06/08/21 at 14:02; Status DC Fentanyl Citrate (Fentanyl 2ml Vial) 50 mcg PRN Q5MIN PRN IVP MODERATE PAIN 4-6 ; Start 06/08/21 at 06:00; Stop 06/08/21 at 14:02; Status DC Morphine Sulfate (Morphine Sulfate) 1 mg PRN Q10MIN PRN IVP SEVERE PAIN 7-10; Start 06/08/21 at 06:00; Stop 06/08/21 at 14:02; Status DC Ringer's Solution 1,000 ml @ 30 mls/hr Q24H IV Last administered on 06/08/21at 12:04; Start 06/08/21 at 06:00; Stop 06/08/21 at 14:02; Status DC Hydromorphone HCl (Dilaudid) 0.5 mg PRN Q10MIN PRN IVP SEVERE PAIN 7-10, 2nd CHOICE; Start 06/08/21 at 06:00; Stop 06/08/21 at 14:02; Status DC Prochlorperazine Edisylate (Compazine) 5 mg PACU PRN PRN IVP NAUSEA, MRX1; Start 06/08/21 at 06:00; Stop 06/08/21 at 14:02; Status DC Cefazolin Sodium/ Dextrose 50 ml @ 100 mls/hr 1X PREOP PRN IV PRIOR TO PROCEDURE; Start 06/08/21 at 06:00; Stop 06/08/21 at 14:01; Status DC Albuterol/ Ipratropium (Duoneb) 3 ml ONCE ONCE NEB Last administered on 06/08/21at 12:18; Start 06/08/21 at 12:15; Stop 06/08/21 at 12:16; Status DC Ceftriaxone Sodium (Rocephin) 1 gm Q24H IVP Last administered on 06/12/21at 13:58; Start 06/08/21 at 15:00 Diazepam (Valium) 5 mg 1X ONCE PO Last administered on 06/08/21at 14:02; Start 06/08/21 at 14:00; Stop 06/08/21 at 14:01; Status DC Oxycodone HCl (Roxicodone) 30 mg 1X ONCE PO Last administered on 06/08/21at 14:02; Start 06/08/21 at 14:00; Stop 06/08/21 at 14:01; Status DC Sennosides (Senna) 17.2 mg PRN BID PRN PO CONSTIPATION Last administered on 06/13/21at 09:33; Start 06/08/21 at 14:00 Docusate Sodium (Colace) 100 mg PRN DAILY PRN PO HARD STOOLS Last administered on 06/13/21at 09:34; Start 06/08/21 at 14:00 Ondansetron HCl (Zofran) 4 mg PRN Q6HRS PRN IVP NAUSEA/VOMITING, 1st CHOICE; Start 06/08/21 at 14:00 Albuterol/ Ipratropium (Duoneb) 3 ml RTQID NEB Last administered on 06/13/21at 12:00; Start 06/08/21 at 16:00 Dextrose (Dextrose 50%-Water Syringe) 12.5 gm PRN Q15MIN PRN IV SEE COMMENTS; Start 06/08/21 at 14:00 Acetaminophen (Tylenol) 650 mg PRN Q4HRS PRN PO TEMP OVER 100.4F OR MILD PAIN; Start 06/08/21 at 14:00 Lorazepam (Ativan) 0.5 mg PRN Q6HRS PRN PO ANXIETY / AGITATION Last administ ered on 06/13/21at 02:48; Start 06/08/21 at 14:00 Lorazepam (Ativan Inj) 0.25 mg PRN Q4HRS PRN IV ANXIETY / AGITATION; Start at 14:00 Prochlorperazine Edisylate (Compazine) 10 mg PRN Q6HRS PRN IV NAUSEA/VOMITING, 2nd CHOICE; Start 06/08/21 at 14:00 Diphenhydramine HCl (Benadryl) 25 mg PRN Q6HRS PRN IVP ITCHING Last administered on 06/12/21at 09:50; Start 06/08/21 at 14:00 Diphenhydramine HCl (Benadryl) 25 mg PRN Q6HRS PRN PO ITCHING Last administered on 06/11/21at 16:34; Start 06/08/21 at 14:00 Diphenhydramine HCl (Benadryl) 25 mg PRN QHS PRN PO INSOMNIA, 1st CHOICE Last administered on 06/11/21at 00:38; Start 06/08/21 at 14:00 Zolpidem Tartrate (Ambien) 2.5 mg PRN QHS PRN PO INSOMNIA, 2nd CHOICE; Start 06/08/21 at 14:00 Ceftriaxone Sodium (Rocephin) 1 gm Q24H IVP ; Start 06/08/21 at 14:00; Status UNV Azithromycin 500 mg/Sodium Chloride 250 ml @ 250 mls/hr Q24H IV Last administered on 06/10/21at 14:55; Start 06/08/21 at 16:00; Stop 06/11/21 at 03:55; Status DC Amlodipine Besylate (Norvasc) 10 mg DAILY PO Last administered on 06/13/21at 09:34; Start 06/09/21 at 09:00 Atorvastatin Calcium (Lipitor) 20 mg QHS PO Last administered on 06/12/21at 20:57; Start 06/08/21 at 21:00 Diazepam (Valium) 5 mg TID PO Last administered on 06/13/21at 09:32; Start 06/08/21 at 21:00 Trazodone HCl (Desyrel) 100 mg QHS PO Last administered on 06/12/21at 20:56; Start 06/08/21 at 21:00 Albuterol Sulfate (Ventolin Neb Soln) 2.5 mg Q4HRS NEB ; Start 06/08/21 at 16:00; Stop 06/10/21 at 23:50; Status DC Budesonide (Pulmicort) 0.5 mg RTBID NEB Last administered on 06/13/21at 06:24; Start 06/08/21 at 20:00 Non-Formulary Medication (Fluticasone/ Umeclidin/ Vilanter (Trelegy Ellipta 100-62.5-25)) 1 each DAILY IH ; Start 06/09/21 at 09:00; Status UNV Oxycodone HCl (Roxicodone) 30 mg PRN Q4HRS PRN PO BREAKTHRU PAIN Last administered on 06/13/21at 02:49; Start 06/08/21 at 15:15 Oxycodone HCl (OxyCONTIN) 80 mg BID PO Last administered on 06/13/21at 09:33; Start 06/08/21 at 21:00 Quetiapine Fumarate (SEROquel) 50 mg QHS PO Last administered on 06/12/21at 20:57; Start 06/08/21 at 21:00 Sertraline HCl (Zoloft) 100 mg DAILY PO Last administered on 06/13/21at 09:34; Start 06/09/21 at 09:00 Nicotine (Nicoderm Cq 14mg) 1 patch DAILY TD ; Start 06/09/21 at 13:00; Stop 06/09/21 at 13:02; Status DC Nicotine (Nicoderm Cq 21mg) 1 patch DAILY TD Last administered on 06/13/21at 09:35; Start 06/09/21 at 13:00 Enoxaparin Sodium (Lovenox 40mg Syringe) 40 mg Q24H SQ Last administered on 06/12/21at 13:57; Start 06/09/21 at 14:00 Methylprednisolone Sodium Succinate (SOLU-Medrol 40MG VIAL) 40 mg Q8HRS IV Last administered on 06/13/21at 05:38; Start 06/09/21 at 16:15 Albuterol Sulfate (Ventolin Neb Soln) 2.5 mg PRN Q4HRS PRN NEB WHEEZING; Start 06/11/21 at 00:00 Azithromycin (Zithromax) 500 mg Q24H PO Last administered on 06/12/21at 13:57; Start 06/11/21 at 16:00 Lactobacillus Rhamnosus (Culturelle) 1 cap BID PO Last administered on 06/13/21at 09:32; Start 06/11/21 at 21:00 Fentanyl Citrate (Fentanyl 2ml Vial) 25 mcg PRN Q5MIN PRN IVP MILD PAIN 1-3; Start 06/14/21 at 06:00; Stop 06/15/21 at 05:59 Fentanyl Citrate (Fentanyl 2ml Vial) 50 mcg PRN Q5MIN PRN IVP MODERATE PAIN 4- 6; Start 06/14/21 at 06:00; Stop 06/15/21 at 05:59 Morphine Sulfate (Morphine Sulfate) 1 mg PRN Q10MIN PRN IVP SEVERE PAIN 7-10; Start 06/14/21 at 06:00; Stop 06/15/21 at 05:59 Ringer's Solution 1,000 ml @ 30 mls/hr Q24H IV ; Start 06/14/21 at 06:00; Stop 06/14/21 at 17:59 Hydromorphone HCl (Dilaudid) 0.5 mg PRN Q10MIN PRN IVP SEVERE PAIN 7-10, 2nd CHOICE; Start 06/14/21 at 06:00; Stop 06/15/21 at 05:59 Prochlorperazine Edisylate (Compazine) 5 mg PACU PRN PRN IVP NAUSEA, MRX1; Start 06/14/21 at 06:00; Stop 06/15/21 at 05:59 Active Scripts Active Amlodipine Besylate 10 Mg Tablet 10 Mg PO DAILY 30 Days Reported Oxycontin (Oxycodone HCl) 30 Mg Tab.er.12h 1-2 Tab PO Q4HRS MDD 3 Tablet(s) 30 Days Trelegy Ellipta 100-62.5-25 (Fluticasone/Umeclidin/Vilanter) 1 Each Blst.w.dev 1 Each IH DAILY Ventolin Hfa Inhaler (Albuterol Sulfate) 18 Gm Hfa.aer.ad 2 Puff INH Q4HRS Symbicort 160-4.5 Mcg Inhaler (Budesonide/Formoterol Fumarate) 10.2 Gm Hfa.aer.ad 2 Puff IH BID Seroquel (Quetiapine Fumarate) 50 Mg Tablet 50 Mg PO HS Diazepam 5 Mg Tablet 5 Mg PO TID Trazodone Hcl 100 Mg Tablet 100 Mg PO HS Zoloft (Sertraline Hcl) 100 Mg Tablet 100 Mg PO DAILY Oxycontin (Oxycodone HCl) 80 Mg Tab.er.12h 80 Mg PO BID Atorvastatin Calcium 20 Mg Tablet 20 Mg PO HS Vitals/I & O Vital Sign - Last 24 Hours 06/12/21 06/12/21 06/12/21 06/12/21 14:00 14:01 14:55 15:00 Temp 97.4 97.4 Pulse 68 Resp 24 B/P (MAP) 122/63 (82) Pulse Ox 98 92 90 98 O2 Delivery BiPAP/CPAP BiPAP/CPAP BiPAP/CPAP O2 Flow Rate 3.0 06/12/21 06/12/21 06/12/21 06/12/21 15:26 19:00 20:10 20:11 Temp 97.3 97.3 Pulse 66 Resp 18 B/P (MAP) 121/60 (80) Pulse Ox 92 94 95 O2 Delivery BiPAP/CPAP Bi-pap BiPAP/CPAP O2 Flow Rate 3.0 06/12/21 06/12/21 06/12/21 06/13/21 20:57 23:00 23:49 01:59 Temp 98.2 98.2 Pulse 68 Resp 18 18 18 B/P (MAP) 134/68 (90) Pulse Ox 95 94 94 94 O2 Delivery BiPAP/CPAP O2 Flow Rate 3.0 3.0 06/13/21 06/13/21 06/13/21 06/13/21 02:49 03:00 03:35 04:48 Temp 97.8 97.8 Pulse 56 Resp 18 22 18 B/P (MAP) 124/79 (94) Pulse Ox 94 94 94 94 O2 Delivery BiPAP/CPAP O2 Flow Rate 3.0 3.0 06/13/21 06/13/21 06/13/21 06/13/21 06:26 07:11 09:33 09:34 Temp 97.4 97.4 Pulse 58 58 Resp 20 B/P (MAP) 135/65 (88) 135/65 Pulse Ox 97 94 O2 Delivery BiPAP/CPAP BiPAP/CPAP 06/13/21 06/13/21 10:59 12:00 Temp 97.9 97.9 Pulse 55 Resp 18 B/P (MAP) 149/70 (96) Pulse Ox 94 90 O2 Delivery BiPAP/CPAP Nasal Cannula O2 Flow Rate 2.0 Intake and Output 06/12/21 06/12/21 06/13/21 15:00 23:00 07:00 Intake Total 240 ml Output Total 3000 ml Balance -3000 ml 240 ml Justifications for Admission Other Justification Hypercapnic respiratory failure EULALIO ALBERT DPJames Jun 13, 2021 13:39
[2021-06-13] MEDS: ENOXAPARIN 40 MG/0.4 ML SYRINGE. SQ SCH (15:03)
[2021-06-13] MEDS: cefTRIAXone IV Push 1 GM VIAL. IVP SCH (15:05)
[2021-06-13 15:08] VITALS: BP 119/58
[2021-06-13] MEDS: AZITHROMYCIN 250 MG TABLET. PO SCH (17:29)
[2021-06-13 19:54] VITALS: BP 124/59
[2021-06-13] MEDS: traZODone 100 MG TABLET. PO SCH (20:09)
[2021-06-13] MEDS: ATORVASTATIN CALCIUM 20 MG TABLET PO SCH (20:09)
[2021-06-13] MEDS: QUEtiapine 25 MG TABLET. PO SCH (20:09)
[2021-06-13 23:11] VITALS: BP 105/54
[2021-06-14] VITALS (7 sets, daily range): BP systolic 123–137; BP diastolic 57–67
[2021-06-14] MEDS: diphenhydrAMINE HCL 25 MG CAPSULE PO PRN (00:40)
[2021-06-14] MEDS: methylPREDNISolone SOD SUCC PF 40 MG/ML VIAL. IV SCH (05:42)
[2021-06-14] MEDS ORDERED: IV RINGERS,LACTATED 1000ML 1,000 ML IV SCH (06:00)
[2021-06-14] MEDS ORDERED: PROCHLORPERAZINE 10 MG/2 ML VIAL. IVP PRN (06:00)
[2021-06-14] MEDS ORDERED: HYDROmorphone 2 MG/ML INJ. IVP PRN (06:00)
[2021-06-14] MEDS ORDERED: fentaNYL PF VIAL 100 MCG/2 ML VIAL IVP PRN (06:00)
[2021-06-14] MEDS: BUDESONIDE 0.5 MG/2 ML NEBU. NEB SCH (07:16)
[2021-06-14] MEDS: IPRATRPIUM/ALBUTEROL 0.5/2.5MG 3 ML NEBU. NEB SCH ×2 (07:16→11:28)
[2021-06-14] MEDS: LACTOBACILLUS RHAMNOSUS GG 1 CAPSULE. PO SCH (07:42)
[2021-06-14] MEDS: SERTRALINE 50 MG TABLET. PO SCH (07:43)
[2021-06-14] MEDS: diazePAM 5 MG TABLET PO SCH (07:43)
[2021-06-14] MEDS: NICOTINE 21MG PATCH. TD SCH (09:00)
[2021-06-14] MEDS: oxyCODONE ER 40 MG TAB.ER.12H PO SCH (09:00)
--- NOTE | 2021-06-14 09:54 | PDOC ---
PULMONARY PROGRESS NOTES DATE: 06/14/21 TIME: 09:51 Subjective Patient lying in bed this morning, NPO in anticipation of surgery this morning currently on 5L NC discussed surgery plan, recovery, and plans after Vitals Vital Signs Date Time Temp Pulse Resp B/P (MAP) Pulse Ox O2 Delivery O2 Flow Rate FiO2 06/14/21 07:18 96 BiPAP/CPAP 06/14/21 07:00 97.5 58 17 136/62 (86) 3.0 97.5 ROS: No Nausea, No Chest Pain General: Alert HEENT: Other Lungs: Clear Cardiovascular: S1, S2 Abdomen: Soft, Non-tender Extremities: No Edema Skin: Warm, No Rashes Medications Active Scripts Medications Dose Route/Sig Max Daily Dose Days Date Category Oxycontin (Oxycodone HCl) 30 Mg Tab.er.12h 1-2 Tab PO Q4HRS MDD 3 Tablet(s) 30 06/08/21 Reported Trelegy Ellipta 100-62.5-25 (Fluticasone/Umeclidin/Vilanter) 1 Each Blst.w.dev 1 Each IH DAILY 06/08/21 Reported Ventolin Hfa Inhaler (Albuterol Sulfate) 18 Gm Hfa.aer.ad 2 Puff INH Q4HRS 06/08/21 Reported Symbicort 160-4.5 Mcg Inhaler (Budesonide/Formoterol Fumarate) 10.2 Gm Hfa.aer.ad 2 Puff IH BID 06/08/21 Reported Seroquel (Quetiapine Fumarate) 50 Mg Tablet 50 Mg PO HS 06/08/21 Reported Diazepam 5 Mg Tablet 5 Mg PO TID 06/08/21 Reported Trazodone Hcl 100 Mg Tablet 100 Mg PO HS 04/06/20 Reported Zoloft (Sertraline Hcl) 100 Mg Tablet 100 Mg PO DAILY 04/06/20 Reported Oxycontin (Oxycodone HCl) 80 Mg Tab.er.12h 80 Mg PO BID 04/06/20 Reported Atorvastatin Calcium 20 Mg Tablet 20 Mg PO HS 04/06/20 Reported Amlodipine Besylate 10 Mg Tablet 10 Mg PO DAILY 30 04/05/20 Rx Impression . FULL CONSULT DICTATED SEE ORDERS HOLD OFF ON SURGERY FOR NOW AVOIOD EXCESSIVE SEDATING RX CONTINUE PRN BIPAP THANKS Plan . Updated 06/14 Scheduled foot surgery at 11:45 this morning Continue NPO in anticipation of surgery Continue NC and BiPAP following surgery PT to assist with ambulation training Updated 06/13 Continue to encourage compliance with NC and BiPAP Provide and encourage Incentive Spirometer Discussed with RN Patient is currently scheduled for foot surgery tomorrow, discussed with RN and Patient Patient's respiratory status is compensated for no surgical intervention, discussed with surgeon, will be done with local, and IV sedation MIRIAM WAGNER MD Jun 14, 2021 09:54
[2021-06-14] MEDS ORDERED: fentaNYL PF VIAL 100 MCG/2 ML VIAL ONE ×4 (11:05→13:18)
[2021-06-14] MEDS: fentaNYL PF VIAL 100 MCG/2 ML VIAL IVP PRN ×4 (11:13→13:37)
[2021-06-14] MEDS ORDERED: MIDAZOLAM HCL/PF 2 MG/2 ML VIAL. ONE (11:23)
[2021-06-14] MEDS ORDERED: ROPIVacaine 0.5% PF 20 ML VIAL. ONE (11:23)
[2021-06-14] MEDS ORDERED: LIDOCAINE 2% PF 5 ML VIAL. ONE ×2 (11:27→11:46)
[2021-06-14] MEDS ORDERED: FAMOTIDINE 20 MG/2 ML VIAL ONE (11:46)
[2021-06-14] MEDS ORDERED: PROPOFOL 10 MG/ML (20ML) VIAL. IV ONE (11:46)
[2021-06-14] MEDS ORDERED: DEXAMETHASONE SOD PHOS 4 MG/ML VIAL ONE (11:46)
[2021-06-14] MEDS ORDERED: VANCOMYCIN 1 GM VIAL. ONE (11:49)
[2021-06-14] MEDS ORDERED: BUPIVACAINE MPF 0.25% 30 ML VIAL. ONE (11:49)
--- NOTE | 2021-06-14 12:50 | PDOC ---
[employer] PROGRESS NOTE Date of Service DOS: DATE: 06/14/21 TIME: 12:49 Chief Complaint Chief Complaint Acute hypoxic and hypercapnic respiratory failure requiring BiPAP support Second and third metatarsal fractures pending orthopedic surgery Continue empiric IV antibiotics Continue BiPAP support [facility] Cardiac diet CODE STATUS full Discussed with RN and SW Disposition inpatient management as above DPOA: Son History of Present Illness History of Present Illness 50yo M presenting today for right foot surgery with Dr. Shaw. Previous right first metatarsal fracture. Hx COPD on 3l home o2, HTN, previous seizure d/o. Patient noted to be saturating 84% on his usual 3L O2 nasal cannula. He was denying any respiratory symptoms at this time. Took morning meds today as directed. Patient's oxygen saturations did not improve with DuoNeb treatment. Seen by anesthesiologist chest x-ray and ABG ordered. Chest x-ray showing left infiltrate. Will start antibiotics. ABG showed consistent with pretty significant respiratory acidosis. May benefit from BiPAP treatment. Will definitely need admission at this point. Surgery canceled. 06/09/2021 No acute events overnight. Patient seen examined bedside. Afebrile and vital signs stable. Saturating 99% on 100% BiPAP. BiPAP taken off and seen on nasal cannula and patient desaturated to the 80s on 5 L nasal cannula. Not dyspneic upon my exam. Patient wishes to remains to be full code. Pending Covid PCR. Patient's chart, labs, images were reviewed and discussed with RN 06/10/2021 No acute events overnight. Patient seen examined bedside. Patient saturating 95% on 100% FiO2 of BiPAP. We will hold off on surgery at this time. Waiting for pulmonary to improve before considering elective surgery. Patient's chart, labs, images were reviewed and discussed with RN 06/11/2021 No acute events overnight. Patient seen examined bedside. AF and VSS. Saturating 94% on 5 L nasal cannula. May consider surgery Sunday with Dr. Shaw if able to maintain his current pulmonary status. Will defer this decision to pulmonary. Patient's chart, labs, images were reviewed and discussed with RN 06/12/2021 No acute events overnight. Patient seen examined bedside. Still requiring BiPAP at night. Patient able to keep on mask for couple hours per day. Redirected to keep PO CO2 yesterday was 69. Not ready for surgery at this time. Follow with pulmonology Recs until ready for surgery later on this week possibly. Patient's chart, labs, images were reviewed and discussed with RN 06/13/2021 No acute events overnight. Patient seen examined bedside. Patient saturating well on room air and tolerating BiPAP at night. Will discuss with pulmonology for possibly proceeding with orthopedic surgery this week or tomorrow. Lissette nt's chart, labs, images were reviewed and discussed with RN 06/14/2021 No acute events overnight. Patient seen examined bedside. Tolerating BiPAP at night and room air during the day. On-call to the OR today for surgery with Dr. Shaw. Patient's chart, labs, images were reviewed and discussed with RN Vitals/I&O Vitals/I&O: Vital Signs Date Time Temp Pulse Resp B/P (MAP) Pulse Ox O2 Delivery O2 Flow Rate FiO2 06/14/21 11:27 15 97 Nasal Cannula 3.0 06/14/21 11:09 97.8 72 155/74 97.8 I & O 06/13/21 06/13/21 06/14/21 15:00 23:00 07:00 Intake Total 300 ml 800 ml Balance 300 ml 800 ml Physical Exam General: Alert, Oriented X3, Cooperative Heart: Regular rate Lungs: Clear Abdomen: Normal bowel sounds Extremities: No clubbing Comment Review of Relevant I have reviewed the following items daria (where applicable) has been applied. Medications: Current Medications Medications (Trade) Dose Ordered Sig/Jakob Route PRN Reason Start Time Stop Time Status Last Admin Dose Admin Fentanyl Citrate (Fentanyl 2ml Vial) 50 mcg PRN Q5MIN PRN IVP MODERATE PAIN 4-6 06/14/21 06:00 06/15/21 05:59 06/14/21 11:27 Ringer's Solution 1,000 ml @ 30 mls/hr Q24H IV 06/14/21 06:00 06/14/21 17:59 06/14/21 11:00 Justifications for Admission Other Justification Hypercapnic respiratory failure SREEDHAR VASQUEZ MD Jun 14, 2021 12:50
--- NOTE | 2021-06-14 13:05 | PDOC4 ---
OPERATIVE NOTE Date: Date: Jun 14, 2021 Pre-Op Diagnosis: Right comminuted fracture to the first metatarsal base, s/p external fixator across the first ray Post-Op Diagnosis: Same as above Procedure Performed: Hardware removal, right foot Surgeon: Eulalio Albert DPM Anesthesia Type: General with a popliteal and saphenous block to the right lower extremity Blood Loss: 5 cc Specimans Obtained: None Findings: Both before and after have pin removal, stress test across the first TMT was insignificant for subluxation, instability. The first TMT joint space is open without any Lisfranc joint diastasis. The comminuted fracture of the first metatarsal base appears stable upon stress as well. We discussed the possible second stage procedure where we have to fuse the first TMT if the first TMT becomes symptomatic or arthritic upon weightbearing. Complications: None Operative Note: Under mild sedation and right popliteal/saphenous block, patient was brought into the operating room and placed on the operating table in the supine position. A formal timeout was performed to confirm patient's identity, procedure and procedure site. Following preoperative IV antibiotics, general anesthesia induction, a well-padded high ankle tourniquet was placed to the right lower extremity. The right lower extremity was then scrubbed, prepped with 4% chlorhexidine first and 10% Betadine solution after, and draped using standard aseptic techniques. The tourniquet was not inflated. The attention was directed to the medial right midfoot. The clamps and bars were removed first. The half pins were left in place and used a joystick to st ress the first metatarsal base fracture, first TMT which were noted insignificant for instability. Inversion eversion stress test across the Lisfranc was also insignificant for Lisfranc joint instability. Then the half pins were removed in toto. Again, the stress test across the first TMT, first metatarsal base and Lisfranc joint were insignificant for instability under intraoperative x-ray. The first TMT and first MTPJ were noted congruent. then the surgical sites were irrigated with copious saline solution. There was no exposed tendon, active drainage, purulence, periwound erythema, edema noted. The surgical sites were closed with 4-0 nylon. The surgical site was dressed with Xeroform, 4 x 4 gauze, Kerlix and Trent. Adequate digital perfusion was note d to the right lower extremity. The right lower extremity was further immobilized in a short E boot with added arch felt padded to support and protect the midfoot column. Patient tolerated the procedure and anesthesia well with vital signs stable and neurovascular status intact. Patient to partial weightbearing in the Eboot, may remove the boot at night/in bed/and shower. However, the dressing has to be kept clean, dry and intact until next clinical follow-up in 2 weeks. EULALIO ALBERT DPM Jun 14, 2021 13:04
[2021-06-14] MEDS ORDERED: ACETAMINOPHEN 325 MG TABLET. PO ONE (13:15)
[2021-06-14] MEDS ORDERED: oxyCODONE/APAP 5/325 1 TAB TABLET PO ONE (13:15)
[2021-06-14] MEDS ORDERED: MORPHINE SULFATE 2 MG/ML INJ. ONE (13:18)
[2021-06-14] MEDS: MORPHINE SULFATE 2 MG/ML INJ. IVP PRN ×2 (13:21→13:37)
--- NOTE | 2021-06-14 14:45 | NUR ---
Spoke with Lala in PACU. Patient had new IV left AC, EBL 0. LR 500ml, 4 dexamthasone, 4 zofran, 150mcg of fentanyl, 2mg or morphine. Xerofrom, 4x4, kerlix, ABD, anita wrap, in orthopedic boot. BP 134/68, 98.7 temp HR 70 HR Partial heel touch.
--- NOTE | 2021-06-14 15:05 | NUR ---
Patient insisted on leaving AMA. Patient was educated on weight bearing, informed on fall precautions. Patient refused teaching. Stated his son is here to pick him up. Patient refused pain meds, and stated he had pain meds at home. Escorted out with all belongings to main entrance by Security, Shonda GORIDLLO, and Frida GORDILLO with his home oxygen to main entrance.
--- NOTE | 2021-06-14 15:14 | NUR ---
SW following. Discussed with RN, pt had surgery and then left AMA.
== END 2021-06-14 15:05 | disposition left against medical advice (07) | DRG 503 ==
LOC: SURG 11:16 → 5 SOUTH 14:43 → 5 NORTH 06-09 00:18
PROVIDERS: ADMIT Internal Medicine; ATTEND Internal Medicine
PROC: 5A09357 Assistance with Respiratory Ventilation, Less than 24 Consecutive Hours, Continuous Positive Airway Pressure (ICD-10-PCS; 2021-06-08)
PROC: 5A09457 Assistance with Respiratory Ventilation, 24-96 Consecutive Hours, Continuous Positive Airway Pressure (ICD-10-PCS; principal; 2021-06-10)
PROC: 0SP Lower Joints, Removal (ICD-10-PCS; 2021-06-14)
DX: S92.313A Displaced fracture of first metatarsal bone, unspecified foot, initial encounter for closed fracture (principal); J96.22 Acute and chronic respiratory failure with hypercapnia; J96.21 Acute and chronic respiratory failure with hypoxia; J44.1 Chronic obstructive pulmonary disease with (acute) exacerbation; G40.909 Epilepsy, unspecified, not intractable, without status epilepticus; I10 Essential (primary) hypertension; Z53.9 Procedure and treatment not carried out, unspecified reason; Z72.0 Tobacco use; Z81.8 Family history of other mental and behavioral disorders; Z99.81 Dependence on supplemental oxygen; F41.9 Anxiety disorder, unspecified
CPT/HCPCS: 36415; 36600; 71045; 80048; 82805; 83735; 85025; 94640; 94660; 94760; A4930; A6223; A6253; A6402; A6443; A6449; A6455; J0456; J0690; J0696; J1100; J1200; J1650; J2250; J2270; J2704; J2795; J2920; J3010; J3370; J3490; J7050; J7120; U0003; U0005; 97110-GO; 97110-GP; 97116-GP; G0378; J7030; J7626; Q0163